=== PATIENT | male | born 1955 | race Two or more races ===

== ENCOUNTER 2018-02-14 15:25 | Emergency (ER) | payer MEDICAID ==
[~2018-02-14] VITALS: Ht 167.6 cm; Wt 70.3 kg
[2018-02-14 16:06] VITALS: BP 122/81
[2018-02-14] MEDS ORDERED: KETOROLAC TROMETH 30 MG/ML 1ML VIAL IM ONE (16:45)
== END 2018-02-14 18:11 | disposition home or self-care (01) ==
LOC: ER 15:33
DX: S60.221A Contusion of right hand, initial encounter (principal); F17.210 Nicotine dependence, cigarettes, uncomplicated; W22.8XXA Striking against or struck by other objects, initial encounter; Y93.89 Activity, other specified; Y99.8 Other external cause status; Y92.89 Other specified places as the place of occurrence of the external cause
CPT/HCPCS: 73130

== ENCOUNTER 2021-02-17 13:21 | Emergency (ER) | payer MEDICAID ==
[~2021-02-17] VITALS: Ht 167.6 cm; Wt 72.6 kg
[2021-02-17] MEDS ORDERED: ACETAMINOPHEN/CODEINE#3 (300/30mg) TAB PO ONE (15:15)
[2021-02-17] MEDS ORDERED: ONDANSETRON ODT 4 MG TAB PO ONE (15:15)
[2021-02-17 15:25] VITALS: BP 126/73
== END 2021-02-17 15:39 | disposition home or self-care (01) ==
LOC: ER 13:23
DX: H61.22 Impacted cerumen, left ear (principal)
CPT/HCPCS: 99283; Q0162

== ENCOUNTER 2022-12-15 17:21 | Emergency (ER) | payer MEDICAID ==
[~2022-12-15] VITALS: Ht 167.6 cm; Wt 87.0 kg
[2022-12-15 17:25] VITALS: BP 137/77; PULSE 96; RESP 20; O2SAT 93
[2022-12-15 21:07] LABS: Basophils # (auto) 0.1 10 ^3/uL (0-0.2); Basophils % (auto) 0.9 % (0.0-2.0); Eosinophils # (auto) 0.1 10 ^3/uL (0-0.8); Eosinophils % (auto) 1.6 % (0.0-7.0); Hematocrit 31.5 % (41.0-53.0); Hemoglobin 10.4 g/dL (13.5-17.5); Lymphocytes # (auto) 1.1 10 ^3/uL (0.4-5.4); Lymphocytes % (auto) 13.2 % (10.0-50.0); Mean Corpuscular Hemoglobin 31.7 pg (28.0-32.0); Mean Corpuscular Hgb Conc. 33.1 g/dL (32.0-36.0); Mean Corpuscular Volume 95.7 fL (80.0-100.0); Monocytes % (auto) 11.1 % (0.0-12.0); Neutrophils # (auto) 6.3 10 ^3/uL (1.6-8.6); Neutrophils % (auto) 73.2 % (37.0-80.0); Nucleated Red Blood Cells % 0.1 %; Red Blood Cells 3.29 10^6/uL (4.5-5.90); Red Cell Distribution Width 18.3 % (11.8-14.3); White Blood Cell 8.6 10^3/uL (4.4-10.8)
[2022-12-15 21:20] LABS: Albumin 2.2 g/dL (3.4-5.0); Calcium 7.5 mg/dL (8.5-10.1); Magnesium 2.5 mg/dL (1.6-2.6); Potassium 4.2 mmol/L (3.5-5.1)
[2022-12-15 21:24] LABS: BUN/Creatinine Ratio 5.7 (10.0-20.0); Total Protein 7.4 g/dL (6.4-8.2)
== END 2022-12-15 20:44 | disposition left against medical advice (07) ==
LOC: ER 17:21 → EDBD 17:21 → ER 20:44
DX: R07.89 Other chest pain (principal); R60.0 Localized edema; R06.02 Shortness of breath; Z53.21 Procedure and treatment not carried out due to patient leaving prior to being seen by health care provider
CPT/HCPCS: 36415; 71045; 80053; 83735; 83880; 84484; 85025; 93005

== ENCOUNTER 2023-03-01 13:40 | Inpatient (IN) | payer MEDICAID ==
[~2023-03-01] VITALS: Ht 198.1 cm; Wt 84.2 kg
[2023-03-01] VITALS (14 sets, daily range): BP systolic 69–168; BP diastolic 31–76; PULSE 115–150; RESP 16–24; TEMP 96.3–98.4; O2SAT 92–100
[2023-03-01] MEDS ORDERED: VANCOMYCIN 1GM/250ML 250 ML IV ONE (14:15)
[2023-03-01] MEDS ORDERED: ALBUMIN 25% 100 ML IV ONE (14:15)
[2023-03-01] MEDS ORDERED: PIPERACILLIN-TAZO 4.5GM 100 ML IV ONE (14:15)
[2023-03-01 14:38] LABS: Hematocrit 29.6 % (41.0-53.0); Hemoglobin 9.4 g/dL (13.5-17.5); Mean Corpuscular Hemoglobin 33.3 pg (28.0-32.0); Mean Corpuscular Hgb Conc. 31.9 g/dL (32.0-36.0); Mean Corpuscular Volume 104.2 fL (80.0-100.0); Red Blood Cells 2.84 10^6/uL (4.5-5.90); Red Cell Distribution Width 18.2 % (11.8-14.3); White Blood Cell 20.7 10^3/uL (4.4-10.8)
[2023-03-01 14:40] LABS: Basophils % (manual) 0 (0.0-2.0); Blast Cells 0; Eosinophils % (manual) 0 (0-7); Metamyelocytes % 0; Myelocytes % 0; Promyelocytes % 0; Reactive Lymphocytes 0
[2023-03-01] MEDS ORDERED: SODIUM CHLORIDE 0.9% 1,000 ML IV ONE ×2 (14:45→16:15)
[2023-03-01 15:05] LABS: INR 1.94 (0.9-1.15); Prothrombin Time 19.5 sec (9.3-11.8)
[2023-03-01 15:19] LABS: Alanine Aminotransferase 25 U/L (7-40); Albumin 2.2 g/dL (3.2-4.8); Alkaline Phosphatase 211 U/L (46-116); Anion Gap 13 (5-15); Aspartate Aminotransferase 60 U/L (13-40); Bilirubin, Total 6.5 mg/dL (0.2-1.0); Blood Urea Nitrogen 29 mg/dL (9-23); Calcium 8.5 mg/dL (8.5-10.1); Carbon Dioxide 18 mmol/L (20-30); Chloride 104 mmol/L (98-107); Glucose 170 mg/dL (74-106); Potassium 5.5 mmol/L (3.5-5.1); Sodium 135 mmol/L (136-145); Total Protein 5.1 g/dL (5.7-8.2)
[2023-03-01 15:39] LABS: Lactic Acid w/Reflex 9.4 mmol/L (0.4-2.0)
[2023-03-01] MEDS ORDERED: VANCOMYCIN PER PHARMACY 0 MG IV SCH (16:15)
[2023-03-01] MEDS ORDERED: MORPHINE SULFATE INJ 2 MG/ml SYRG IV PRN (16:15)
[2023-03-01] MEDS ORDERED: SODIUM ZIRCONIUM CYCL 10 GM PAK PO ONE ×3 (16:15→23:15)
[2023-03-01] MEDS ORDERED: ACETAMINOPHEN 325 MG TAB PO PRN (16:15)
[2023-03-01] MEDS ORDERED: NITROGLYCERIN 0.4 MG SL TAB SL PRN (16:15)
[2023-03-01] MEDS ORDERED: ONDANSETRON HCL 4 MG/2 ML VIAL IV PRN (16:15)
[2023-03-01 16:20] LABS: Anisocytosis Slight; Band Neutrophils % (manual) 4; Lymphocytes % (manual) 6 (10.0-50.0); Monocytes % (manual) 6 (0-12); Platelet Estimate Adequate
[2023-03-01] MEDS ORDERED: POTA1TAB4 (16:23)
[2023-03-01] MEDS ORDERED: DICL1GEL73 TOP (16:23)
[2023-03-01] MEDS ORDERED: [UNRECOGNIZED DRUG - OTHER] (16:23)
[2023-03-01] MEDS ORDERED: SPIR25TA8 PO (16:23)
[2023-03-01] MEDS: SODIUM CHLORIDE 0.9% 1,000 ML IV SCH (16:23)
[2023-03-01] MEDS ORDERED: ALBU108A5 INH (16:23)
[2023-03-01] MEDS ORDERED: FUR20T PO (16:23)
[2023-03-01] MEDS: ALBUMIN 25% 100 ML IV SCH (16:34)
[2023-03-01] MEDS ORDERED: ASPirin 300 MG RECTAL SUPP PR ONE (18:15)
[2023-03-01] MEDS ORDERED: NOREPINEPHRINE 8 MG/250ML KIT 250 ML IV ONE (18:53)
[2023-03-01] MEDS: NOREPINEPHRINE 8 MG/250ML KIT 250 ML IV SCH ×2 (18:56→23:31)
[2023-03-01] MEDS ORDERED: SUCCINYLCHOLINE CHLORIDE 20 MG/ML 10ML VIAL IV ONE ×2 (18:59→19:00)
[2023-03-01] MEDS ORDERED: ETOMIDATE (2MG/ML) 20ML VIAL IV ONE ×2 (18:59→19:00)
[2023-03-01] MEDS ORDERED: MIDAZOLAM DRIP 50 mg/50mL 50 ML IV ONE (19:07)
[2023-03-01] MEDS: MIDAZOLAM DRIP 50 mg/50mL 50 ML IV SCH ×2 (19:10→23:30)
[2023-03-01] MEDS ORDERED: PANTOPRAZOLE 80 MG in SODIUM CHL 0.9% 100 ML IV ONE (19:15)
[2023-03-01] MEDS ORDERED: OCTREOTIDE ACETATE 100 MCG in SODIUM CHL 0.9% 50 ML IV ONE (19:15)
[2023-03-01] MEDS ORDERED: PANTOPRAZOLE 40 MG/10 ML VIAL INJ IV ONE (19:34)
[2023-03-01] MEDS: PANTOPRAZOLE 40mg/50ML NS AE 50 ML IV SCH (19:49)
[2023-03-01] MEDS: OCTREOTIDE ACETATE 500 MCG in SODIUM CHL 0.9% 99 ML IV SCH (19:51)
[2023-03-01] MEDS: PHENYLEPHRINE IV 250 ML IV SCH (20:13)
[2023-03-01] MEDS: VASOPRESSIN 40 UNITS in D5W 5% 198 ML IV SCH (20:32)
[2023-03-01 20:54] LABS: Urine Bacteria FEW /hpf (None Seen); Urine Blood 1+ /uL (Negative); Urine Clarity HAZY (Clear); Urine Color Yellow (Yellow); Urine Protein, UAD 1+ (Negative); Urine WBC 64 /hpf (0 - 3)
[2023-03-01] MEDS ORDERED: fentaNYL Drip 2500mCg/250mlNS 250 ML IV ONE (21:14)
[2023-03-01 21:15] LABS: Basophils # (auto) 0.1 10 ^3/uL (0-0.2); Basophils % (auto) 0.5 % (0.0-2.0); Eosinophils # (auto) 0.1 10 ^3/uL (0-0.8); Eosinophils % (auto) 0.4 % (0.0-7.0); Hematocrit 26.8 % (41.0-53.0); Hemoglobin 8.6 g/dL (13.5-17.5); Lymphocytes # (auto) 2.2 10 ^3/uL (0.4-5.4); Lymphocytes % (auto) 13.4 % (10.0-50.0); Mean Corpuscular Hemoglobin 31.4 pg (28.0-32.0); Mean Corpuscular Volume 98.2 fL (80.0-100.0); Monocytes # (auto) 2.4 10 ^3/uL (0-1.3); Monocytes % (auto) 14.2 % (0.0-12.0); Neutrophils # (auto) 11.9 10 ^3/uL (1.6-8.6); Neutrophils % (auto) 71.5 % (37.0-80.0); Nucleated Red Blood Cells % 0.1 %; Red Blood Cells 2.73 10^6/uL (4.5-5.90); Red Cell Distribution Width 15.8 % (11.8-14.3); White Blood Cell 16.6 10^3/uL (4.4-10.8)
[2023-03-01] MEDS: fentaNYL Drip 2500mCg/250mlNS 250 ML IV SCH (21:15)
[2023-03-01 21:45] LABS: Alanine Aminotransferase 55 U/L (7-40); Alkaline Phosphatase 116 U/L (46-116); Anion Gap 15 (5-15); Aspartate Aminotransferase 268 U/L (13-40); BUN/Creatinine Ratio 20.7 (10.0-20.0); Blood Urea Nitrogen 23 mg/dL (9-23); Calcium 7.6 mg/dL (8.7-10.4); Carbon Dioxide 15 mmol/L (20-30); Chloride 107 mmol/L (98-107); Glucose 151 mg/dL (74-106); Sodium 137 mmol/L (136-145)
[2023-03-01 21:46] LABS: Bilirubin, Total 4.7 mg/dL (0.2-1.0); Total Protein 3.7 g/dL (5.7-8.2)
[2023-03-01 21:59] LABS: Potassium 5.8 mmol/L (3.5-5.1)
[2023-03-01] MEDS ORDERED: InsuLIN REG 1unit/0.01ml Soln (100units/ml) IV ONE (23:15)
[2023-03-01] MEDS ORDERED: DEXTROSE (50%) 50ML SYRG IV ONE (23:15)
[2023-03-01] MEDS ORDERED: SODIUM BICARBONATE 8.4 % INJ 50ML VIAL IV ONE (23:15)
[2023-03-01] MEDS ORDERED: FUROSEMIDE 20 MG/2 ML VIAL IV ONE (23:15)
[2023-03-01] MEDS ORDERED: CALCIUM GLUC 1,000mg/50ml-NS 50 ML IV ONE (23:15)
[2023-03-01] MEDS: FOLIC ACID 1 MG, MULTIPLE VITAMIN 10 ML, MAGNESIUM SULF SDV 50% 8 MEQ, THIAMINE INJ 100... INJ SCH ×5 (23:28)
[2023-03-02] VITALS (120 sets, daily range): BP systolic 78–144; BP diastolic 19–71; PULSE 74–155; RESP 12–35; TEMP 86–99.1; O2SAT 94–100
[2023-03-02] MEDS: PANTOPRAZOLE 40mg/50ML NS AE 50 ML IV SCH ×6 (00:23→23:25)
[2023-03-02 00:54] LABS: Basophils # (auto) 0.1 10 ^3/uL (0-0.2); Basophils % (auto) 0.3 % (0.0-2.0); Eosinophils # (auto) 0 10 ^3/uL (0-0.8); Eosinophils % (auto) 0.2 % (0.0-7.0); Hematocrit 31.6 % (41.0-53.0); Lymphocytes # (auto) 1.9 10 ^3/uL (0.4-5.4); Lymphocytes % (auto) 10.9 % (10.0-50.0); Mean Corpuscular Hemoglobin 31.8 pg (28.0-32.0); Mean Corpuscular Hgb Conc. 31.6 g/dL (32.0-36.0); Mean Corpuscular Volume 100.7 fL (80.0-100.0); Monocytes # (auto) 0.4 10 ^3/uL (0-1.3); Monocytes % (auto) 2.4 % (0.0-12.0); Neutrophils # (auto) 15.3 10 ^3/uL (1.6-8.6); Neutrophils % (auto) 86.2 % (37.0-80.0); Nucleated Red Blood Cells % 0.1 %; Red Blood Cells 3.13 10^6/uL (4.5-5.90); Red Cell Distribution Width 16.6 % (11.8-14.3); White Blood Cell 17.7 10^3/uL (4.4-10.8)
[2023-03-02 01:12] LABS: Lactic Acid w/Reflex 9.4 mmol/L (0.4-2.0)
[2023-03-02] MEDS: ALBUMIN 25% 100 ML IV SCH ×2 (01:58→08:27)
[2023-03-02] MEDS: VASOPRESSIN 40 UNITS in D5W 5% 198 ML IV SCH ×8 (01:59→22:55)
[2023-03-02] MEDS: LACTULOSE 20Gm/30ML SOLN PO SCH ×4 (02:01→16:52)
[2023-03-02] MEDS: MIDAZOLAM DRIP 50 mg/50mL 50 ML IV SCH ×4 (02:18→22:15)
[2023-03-02] MEDS: SODIUM CHLORIDE 0.9% 1,000 ML IV SCH ×3 (03:32→21:22)
[2023-03-02 04:05] LABS: Hematocrit 25.9 % (41.0-53.0); Hemoglobin 8.4 g/dL (13.5-17.5); Mean Corpuscular Hemoglobin 31.8 pg (28.0-32.0); Mean Corpuscular Hgb Conc. 32.5 g/dL (32.0-36.0); Mean Corpuscular Volume 97.8 fL (80.0-100.0); Red Blood Cells 2.65 10^6/uL (4.5-5.90); Red Cell Distribution Width 15.9 % (11.8-14.3); White Blood Cell 25.8 10^3/uL (4.4-10.8)
[2023-03-02] MEDS: PHENYLEPHRINE IV 250 ML IV SCH ×3 (04:05→20:34)
[2023-03-02 04:07] LABS: Basophils % (manual) 0 (0.0-2.0); Blast Cells 0; Eosinophils % (manual) 0 (0-7); Metamyelocytes % 0; Myelocytes % 0; Promyelocytes % 0; Reactive Lymphocytes 0
[2023-03-02 04:19] LABS: Alanine Aminotransferase 126 U/L (7-40); Alkaline Phosphatase 117 U/L (46-116); Calcium 8.2 mg/dL (8.7-10.4); Carbon Dioxide 23 mmol/L (20-30); Chloride 109 mmol/L (98-107); Glucose 102 mg/dL (74-106); Potassium 4.9 mmol/L (3.5-5.1)
[2023-03-02 04:20] LABS: Albumin 2.6 g/dL (3.2-4.8); Anion Gap 7 (5-15); Aspartate Aminotransferase 584 U/L (13-40); Blood Urea Nitrogen 19 mg/dL (9-23); Lactic Acid w/Reflex 3.8 mmol/L (0.4-2.0); Sodium 139 mmol/L (136-145); Total Protein 4.4 g/dL (5.7-8.2)
[2023-03-02 04:21] LABS: Bilirubin, Total 8.4 mg/dL (0.2-1.0)
[2023-03-02] MEDS: OCTREOTIDE ACETATE 500 MCG in SODIUM CHL 0.9% 99 ML IV SCH ×2 (05:26→16:32)
[2023-03-02] MEDS: NOREPINEPHRINE 8 MG/250ML KIT 250 ML IV SCH ×2 (05:50→23:45)
[2023-03-02 05:59] LABS: Band Neutrophils % (manual) 15; Lymphocytes % (manual) 13 (10.0-50.0); Monocytes % (manual) 9 (0-12)
[2023-03-02 06:00] LABS: Anisocytosis Slight; Platelet Estimate Adequate
[2023-03-02] MEDS ORDERED: VANCOMYCIN 1GM/250ML 250 ML IV SCH (06:00)
[2023-03-02] MEDS: CEFEPIME 1GM/ 50ML 50 ML IV SCH ×2 (06:40→06:44)
[2023-03-02 07:33] LABS: Base Excess 0.8 mmol/L (-2.0-2.0)
[2023-03-02] MEDS ORDERED: ENOXAPARIN SOD 40 MG/0.4 ML SYRINGE SC SCH (10:00)
[2023-03-02] MEDS: fentaNYL Drip 2500mCg/250mlNS 250 ML IV SCH ×2 (11:48→22:13)
[2023-03-02 12:16] LABS: Basophils # (auto) 0.1 10 ^3/uL (0-0.2); Basophils % (auto) 0.9 % (0.0-2.0); Eosinophils # (auto) 0.2 10 ^3/uL (0-0.8); Eosinophils % (auto) 1.6 % (0.0-7.0); Hematocrit 18.6 % (41.0-53.0); Lymphocytes % (auto) 20.9 % (10.0-50.0); Mean Corpuscular Hemoglobin 32.1 pg (28.0-32.0); Mean Corpuscular Hgb Conc. 33.9 g/dL (32.0-36.0); Mean Corpuscular Volume 94.6 fL (80.0-100.0); Monocytes % (auto) 6.9 % (0.0-12.0); Neutrophils # (auto) 10.1 10 ^3/uL (1.6-8.6); Neutrophils % (auto) 69.7 % (37.0-80.0); Nucleated Red Blood Cells % 0.1 %; Red Blood Cells 1.97 10^6/uL (4.5-5.90); Red Cell Distribution Width 15.2 % (11.8-14.3); White Blood Cell 14.5 10^3/uL (4.4-10.8)
[2023-03-02 12:21] LABS: Hemoglobin 6.3 g/dL (13.5-17.5)
[2023-03-02] MEDS ORDERED: LACTULOSE 10g/15ml SOLN 473ML PR ONE (16:15)
[2023-03-02 18:35] LABS: INR 2.16 (0.9-1.15); Prothrombin Time 21.6 sec (9.3-11.8)
[2023-03-02] MEDS: FOLIC ACID 1 MG, MULTIPLE VITAMIN 10 ML, MAGNESIUM SULF SDV 50% 8 MEQ, THIAMINE INJ 100... INJ SCH ×5 (19:38)
[2023-03-02 20:03] LABS: Basophils # (auto) 0.1 10 ^3/uL (0-0.2); Basophils % (auto) 0.8 % (0.0-2.0); Eosinophils # (auto) 0.3 10 ^3/uL (0-0.8); Eosinophils % (auto) 2.2 % (0.0-7.0); Hematocrit 26.6 % (41.0-53.0); Hemoglobin 8.8 g/dL (13.5-17.5); Lymphocytes # (auto) 2.4 10 ^3/uL (0.4-5.4); Lymphocytes % (auto) 20.3 % (10.0-50.0); Mean Corpuscular Hemoglobin 29.6 pg (28.0-32.0); Mean Corpuscular Hgb Conc. 33.1 g/dL (32.0-36.0); Mean Corpuscular Volume 89.4 fL (80.0-100.0); Monocytes # (auto) 0.7 10 ^3/uL (0-1.3); Monocytes % (auto) 6.2 % (0.0-12.0); Neutrophils # (auto) 8.3 10 ^3/uL (1.6-8.6); Neutrophils % (auto) 70.5 % (37.0-80.0); Nucleated Red Blood Cells % 0.1 %; Red Blood Cells 2.98 10^6/uL (4.5-5.90); Red Cell Distribution Width 19.2 % (11.8-14.3); White Blood Cell 11.7 10^3/uL (4.4-10.8)
[2023-03-02 22:00] LABS: Hematocrit 26.3 % (41.0-53.0); Hemoglobin 8.8 g/dL (13.5-17.5)
[2023-03-02 22:05] LABS: Basophils # (auto) 0.1 10 ^3/uL (0-0.2); Basophils % (auto) 0.9 % (0.0-2.0); Eosinophils # (auto) 0.3 10 ^3/uL (0-0.8); Eosinophils % (auto) 2.6 % (0.0-7.0); Hematocrit 26.1 % (41.0-53.0); Hemoglobin 8.8 g/dL (13.5-17.5); Lymphocytes # (auto) 2.5 10 ^3/uL (0.4-5.4); Lymphocytes % (auto) 21.2 % (10.0-50.0); Mean Corpuscular Hemoglobin 29.9 pg (28.0-32.0); Mean Corpuscular Hgb Conc. 33.8 g/dL (32.0-36.0); Mean Corpuscular Volume 88.4 fL (80.0-100.0); Monocytes # (auto) 0.8 10 ^3/uL (0-1.3); Monocytes % (auto) 6.9 % (0.0-12.0); Neutrophils % (auto) 68.4 % (37.0-80.0); Nucleated Red Blood Cells % 0.2 %; Red Blood Cells 2.95 10^6/uL (4.5-5.90); Red Cell Distribution Width 19.5 % (11.8-14.3); White Blood Cell 11.7 10^3/uL (4.4-10.8)
[2023-03-02] MEDS: LACTULOSE 10g/15ml SOLN 473ML PR SCH (22:06)
[2023-03-02 22:23] LABS: Alanine Aminotransferase 111 U/L (7-40); Albumin 2.6 g/dL (3.2-4.8); Alkaline Phosphatase 104 U/L (46-116); Anion Gap 5 (5-15); Aspartate Aminotransferase 302 U/L (13-40); BUN/Creatinine Ratio 26.8 (10.0-20.0); Bilirubin, Total 7.9 mg/dL (0.2-1.0); Blood Urea Nitrogen 19 mg/dL (9-23); Calcium 7.9 mg/dL (8.7-10.4); Carbon Dioxide 26 mmol/L (20-30); Chloride 107 mmol/L (98-107); Glucose 135 mg/dL (74-106); INR 2.15 (0.9-1.15); Magnesium 1.9 mg/dL (1.6-2.6); Partial Thromboplastin Time 43.2 SEC (24.5-34.5); Potassium 3.9 mmol/L (3.5-5.1); Prothrombin Time 21.5 sec (9.3-11.8); Sodium 138 mmol/L (136-145); Total Protein 4.3 g/dL (5.7-8.2)
[2023-03-03] VITALS (73 sets, daily range): BP systolic 87–112; BP diastolic 44–62; PULSE 80–113; RESP 13–21; TEMP 97.6–98.3; O2SAT 99–100
[2023-03-03] MEDS: VASOPRESSIN 40 UNITS in D5W 5% 198 ML IV SCH ×6 (02:15→22:15)
[2023-03-03] MEDS: LACTULOSE 10g/15ml SOLN 473ML PR SCH ×4 (04:30→22:29)
[2023-03-03] MEDS: PHENYLEPHRINE IV 250 ML IV SCH ×3 (05:05→19:45)
[2023-03-03] MEDS: PANTOPRAZOLE 40mg/50ML NS AE 50 ML IV SCH ×5 (06:15→22:30)
[2023-03-03] MEDS: cefTRIAXone 1GM/50ML D5W 50 ML IV SCH (09:00)
[2023-03-03] MEDS: OCTREOTIDE ACETATE 500 MCG in SODIUM CHL 0.9% 99 ML IV SCH ×3 (11:15→21:15)
[2023-03-03 11:28] LABS: Base Excess 1.2 mmol/L (-2.0-2.0)
[2023-03-03] MEDS: LACTULOSE 20Gm/30ML SOLN PO SCH ×3 (12:00→18:12)
[2023-03-03 12:42] LABS: Alanine Aminotransferase 102 U/L (7-40); Albumin 2.7 g/dL (3.2-4.8); Alkaline Phosphatase 102 U/L (46-116); Anion Gap 7 (5-15); Aspartate Aminotransferase 260 U/L (13-40); BUN/Creatinine Ratio 30.3 (10.0-20.0); Bilirubin, Total 7.8 mg/dL (0.2-1.0); Blood Urea Nitrogen 20 mg/dL (9-23); Carbon Dioxide 25 mmol/L (20-30); Chloride 111 mmol/L (98-107); Glucose 127 mg/dL (74-106); Potassium 3.6 mmol/L (3.5-5.1); Sodium 143 mmol/L (136-145); Total Protein 4.4 g/dL (5.7-8.2)
[2023-03-03 12:48] LABS: Alanine Aminotransferase 99 U/L (7-40); Albumin 2.3 g/dL (3.2-4.8); Alkaline Phosphatase 96 U/L (46-116); Anion Gap 5 (5-15); Aspartate Aminotransferase 214 U/L (13-40); BUN/Creatinine Ratio 24.3 (10.0-20.0); Blood Urea Nitrogen 17 mg/dL (9-23); Calcium 7.9 mg/dL (8.5-10.1); Carbon Dioxide 26 mmol/L (20-30); Chloride 114 mmol/L (98-107); Glucose 112 mg/dL (74-106); Potassium 3.3 mmol/L (3.5-5.1); Sodium 145 mmol/L (136-145)
[2023-03-03] MEDS: FOLIC ACID 1 MG, MULTIPLE VITAMIN 10 ML, MAGNESIUM SULF SDV 50% 8 MEQ, THIAMINE INJ 100... INJ SCH ×5 (13:39)
[2023-03-03] MEDS: MIDAZOLAM DRIP 50 mg/50mL 50 ML IV SCH ×3 (14:05→21:02)
[2023-03-03] MEDS: rifAXIMin 550 MG TAB PO SCH ×2 (14:05→22:34)
[2023-03-03 14:40] LABS: Basophils # (auto) 0.1 10 ^3/uL (0-0.2); Eosinophils # (auto) 0.3 10 ^3/uL (0-0.8); Eosinophils % (auto) 3.5 % (0.0-7.0); Hemoglobin 8.3 g/dL (13.5-17.5); Lymphocytes # (auto) 1.1 10 ^3/uL (0.4-5.4); Lymphocytes % (auto) 11.6 % (10.0-50.0); Mean Corpuscular Hemoglobin 30.1 pg (28.0-32.0); Mean Corpuscular Hgb Conc. 33.4 g/dL (32.0-36.0); Mean Corpuscular Volume 90.2 fL (80.0-100.0); Monocytes # (auto) 0.6 10 ^3/uL (0-1.3); Monocytes % (auto) 6.5 % (0.0-12.0); Neutrophils # (auto) 7.5 10 ^3/uL (1.6-8.6); Neutrophils % (auto) 77.4 % (37.0-80.0); Nucleated Red Blood Cells % 0.5 %; Red Blood Cells 2.77 10^6/uL (4.5-5.90); Red Cell Distribution Width 19.8 % (11.8-14.3); White Blood Cell 9.7 10^3/uL (4.4-10.8)
[2023-03-03 14:49] LABS: INR 1.79 (0.9-1.15); Partial Thromboplastin Time 42.4 SEC (24.5-34.5); Prothrombin Time 18.1 sec (9.3-11.8)
[2023-03-03] MEDS: POTASSIUM CHL 20MEQ/100ML 100 ML IV SCH ×2 (14:51→16:59)
[2023-03-03 15:09] LABS: Hepatitis B Surface Antigen Negative (Negative)
[2023-03-03 15:13] LABS: Hepatitis A Total Antibody Positive (Negative); Hepatitis B Core Total AB Positive (Negative); Hepatitis B Surface Antibody Positive (Negative); Hepatitis C Antibody Reactive (Negative)
[2023-03-03] MEDS: NOREPINEPHRINE 8 MG/250ML KIT 250 ML IV SCH (16:06)
[2023-03-03] MEDS: fentaNYL Drip 2500mCg/250mlNS 250 ML IV SCH (18:15)
[2023-03-03] MEDS ORDERED: PHYTONADIONE (VIT K)10 MG/ML 1ML VIAL SUBCUT ONE (19:30)
[2023-03-03 19:34] LABS: Hematocrit 25.2 % (41.0-53.0); Hemoglobin 8.5 g/dL (13.5-17.5)
[2023-03-03] MEDS ORDERED: rifAXIMin 550 MG TAB PO SCH (22:00)
[2023-03-04] VITALS (108 sets, daily range): BP systolic 87–126; BP diastolic 45–60; PULSE 72–104; RESP 13–19; TEMP 93.2–99.1; O2SAT 98–100
[2023-03-04] MEDS: LACTULOSE 20Gm/30ML SOLN PO SCH ×4 (00:12→20:18)
[2023-03-04] MEDS: VASOPRESSIN 40 UNITS in D5W 5% 198 ML IV SCH ×7 (00:24→20:52)
[2023-03-04] MEDS: MIDAZOLAM DRIP 50 mg/50mL 50 ML IV SCH ×4 (00:55→10:04)
[2023-03-04] MEDS: OCTREOTIDE ACETATE 500 MCG in SODIUM CHL 0.9% 99 ML IV SCH ×3 (01:39→21:42)
[2023-03-04] MEDS: PHENYLEPHRINE IV 250 ML IV SCH ×3 (02:19→22:45)
[2023-03-04] MEDS: LACTULOSE 10g/15ml SOLN 473ML PR SCH ×3 (04:12→16:50)
[2023-03-04] MEDS: PANTOPRAZOLE 40mg/50ML NS AE 50 ML IV SCH ×4 (04:55→20:18)
[2023-03-04 05:29] LABS: Alanine Aminotransferase 95 U/L (7-40); Alkaline Phosphatase 124 U/L (46-116); Anion Gap 5 (5-15); Blood Urea Nitrogen 18 mg/dL (9-23); Carbon Dioxide 24 mmol/L (20-30); Chloride 117 mmol/L (98-107); Glucose 107 mg/dL (74-106); Magnesium 2.1 mg/dL (1.6-2.6); Potassium 3.7 mmol/L (3.5-5.1); Sodium 146 mmol/L (136-145)
[2023-03-04 05:30] LABS: Albumin 2.5 g/dL (3.2-4.8); Aspartate Aminotransferase 166 U/L (13-40); Bilirubin, Total 4.8 mg/dL (0.2-1.0); Total Protein 4.5 g/dL (5.7-8.2)
[2023-03-04 05:31] LABS: Basophils # (auto) 0.1 10 ^3/uL (0-0.2); Basophils % (auto) 0.8 % (0.0-2.0); Eosinophils # (auto) 0.3 10 ^3/uL (0-0.8); Eosinophils % (auto) 3.1 % (0.0-7.0); Hematocrit 26.3 % (41.0-53.0); Hemoglobin 9.1 g/dL (13.5-17.5); Lymphocytes # (auto) 1.3 10 ^3/uL (0.4-5.4); Lymphocytes % (auto) 12.7 % (10.0-50.0); Mean Corpuscular Hemoglobin 30.6 pg (28.0-32.0); Mean Corpuscular Hgb Conc. 34.4 g/dL (32.0-36.0); Mean Corpuscular Volume 88.9 fL (80.0-100.0); Monocytes # (auto) 0.6 10 ^3/uL (0-1.3); Monocytes % (auto) 5.9 % (0.0-12.0); Neutrophils % (auto) 77.5 % (37.0-80.0); Red Blood Cells 2.96 10^6/uL (4.5-5.90); Red Cell Distribution Width 19.6 % (11.8-14.3); White Blood Cell 10.3 10^3/uL (4.4-10.8)
[2023-03-04] MEDS: fentaNYL Drip 2500mCg/250mlNS 250 ML IV SCH (06:08)
[2023-03-04 08:48] LABS: Base Excess -3.8 mmol/L (-2.0-2.0)
[2023-03-04] MEDS: cefTRIAXone 1GM/50ML D5W 50 ML IV SCH (10:03)
[2023-03-04] MEDS: rifAXIMin 550 MG TAB PO SCH ×2 (10:04→21:42)
[2023-03-04] MEDS ORDERED: TPN PER PHARMACY 0 ML IV SCH (10:30)
[2023-03-04 11:40] LABS: INR 1.83 (0.9-1.15); Partial Thromboplastin Time 42.7 SEC (24.5-34.5); Prothrombin Time 18.5 sec (9.3-11.8)
[2023-03-04] MEDS: FREE WATER GT SCH ×3 (13:55→21:42)
[2023-03-04] MEDS ORDERED: FREE WATER GT SCH (14:00)
[2023-03-04] MEDS: NOREPINEPHRINE 8 MG/250ML KIT 250 ML IV SCH (19:00)
[2023-03-04] MEDS ORDERED: TPN PER PHARMACY IV NR ×6 (20:00)
[2023-03-04] MEDS ORDERED: DEXTROSE (50%) 50ML SYRG IV SCH (20:00)
[2023-03-05] VITALS (111 sets, daily range): BP systolic 98–131; BP diastolic 45–58; PULSE 70–95; RESP 12–24; TEMP 97–99.5; O2SAT 95–100
[2023-03-05] MEDS: ACCU-CHEK COMFORT CURVE STRIP VI SCH ×5 (00:34→23:52)
[2023-03-05] MEDS: LACTULOSE 20Gm/30ML SOLN PO SCH ×5 (00:34→23:52)
[2023-03-05] MEDS: InsuLIN REG 1unit/0.01ml Soln (100units/ml) SC SCH ×5 (00:39→23:53)
[2023-03-05] MEDS: PANTOPRAZOLE 40mg/50ML NS AE 50 ML IV SCH ×5 (00:49→22:41)
[2023-03-05] MEDS: VASOPRESSIN 40 UNITS in D5W 5% 198 ML IV SCH ×8 (00:55→23:54)
[2023-03-05] MEDS: FREE WATER GT SCH ×6 (02:00→22:18)
[2023-03-05 04:10] LABS: Basophils # (auto) 0.1 10 ^3/uL (0-0.2); Basophils % (auto) 0.9 % (0.0-2.0); Eosinophils # (auto) 0.4 10 ^3/uL (0-0.8); Eosinophils % (auto) 2.5 % (0.0-7.0); Hematocrit 26.7 % (41.0-53.0); Hemoglobin 8.8 g/dL (13.5-17.5); Lymphocytes # (auto) 0.8 10 ^3/uL (0.4-5.4); Lymphocytes % (auto) 5.6 % (10.0-50.0); Mean Corpuscular Hemoglobin 29.9 pg (28.0-32.0); Mean Corpuscular Hgb Conc. 32.8 g/dL (32.0-36.0); Monocytes # (auto) 1.2 10 ^3/uL (0-1.3); Monocytes % (auto) 8.4 % (0.0-12.0); Neutrophils # (auto) 12.2 10 ^3/uL (1.6-8.6); Neutrophils % (auto) 82.6 % (37.0-80.0); Red Blood Cells 2.93 10^6/uL (4.5-5.90); White Blood Cell 14.7 10^3/uL (4.4-10.8)
[2023-03-05 04:18] LABS: INR 1.8 (0.9-1.15); Partial Thromboplastin Time 39.6 SEC (24.5-34.5); Prothrombin Time 18.2 sec (9.3-11.8)
[2023-03-05 04:21] LABS: Alanine Aminotransferase 72 U/L (7-40); Albumin 2.4 g/dL (3.2-4.8); Alkaline Phosphatase 142 U/L (46-116); Anion Gap 6 (5-15); Aspartate Aminotransferase 85 U/L (13-40); BUN/Creatinine Ratio 21.7 (10.0-20.0); Bilirubin, Total 3.4 mg/dL (0.2-1.0); Blood Urea Nitrogen 20 mg/dL (9-23); Carbon Dioxide 24 mmol/L (20-30); Chloride 118 mmol/L (98-107); Glucose 153 mg/dL (74-106); Phosphorus 3.2 mg/dL (2.4-5.1); Potassium 3.6 mmol/L (3.5-5.1); Sodium 148 mmol/L (136-145)
[2023-03-05 04:22] LABS: Total Protein 4.4 g/dL (5.7-8.2)
[2023-03-05] MEDS: OCTREOTIDE ACETATE 500 MCG in SODIUM CHL 0.9% 99 ML IV SCH ×3 (06:40→17:29)
[2023-03-05] MEDS: PHENYLEPHRINE IV 250 ML IV SCH ×3 (07:05→23:10)
[2023-03-05] MEDS: rifAXIMin 550 MG TAB PO SCH ×2 (10:34→22:18)
[2023-03-05] MEDS: cefTRIAXone 1GM/50ML D5W 50 ML IV SCH (10:57)
[2023-03-05] MEDS: NOREPINEPHRINE 8 MG/250ML KIT 250 ML IV SCH (19:00)
[2023-03-05] MEDS: MIDAZOLAM DRIP 50 mg/50mL 50 ML IV SCH (19:15)
[2023-03-05] MEDS: TPN PER PHARMACY IV NR ×11 (19:55)
[2023-03-05] MEDS: fentaNYL Drip 2500mCg/250mlNS 250 ML IV SCH (21:15)
[2023-03-06] VITALS (106 sets, daily range): BP systolic 82–123; BP diastolic 42–64; PULSE 72–99; RESP 13–33; TEMP 97.3–100; O2SAT 91–100
[2023-03-06] MEDS: FREE WATER GT SCH ×6 (02:12→21:47)
[2023-03-06] MEDS: OCTREOTIDE ACETATE 500 MCG in SODIUM CHL 0.9% 99 ML IV SCH ×2 (02:29→16:46)
[2023-03-06] MEDS: PANTOPRAZOLE 40mg/50ML NS AE 50 ML IV SCH ×4 (02:59→20:37)
[2023-03-06] MEDS: VASOPRESSIN 40 UNITS in D5W 5% 198 ML IV SCH ×7 (03:35→23:35)
[2023-03-06 04:09] LABS: Basophils # (auto) 0.1 10 ^3/uL (0-0.2); Basophils % (auto) 1.1 % (0.0-2.0); Eosinophils # (auto) 0.6 10 ^3/uL (0-0.8); Hemoglobin 8.7 g/dL (13.5-17.5); Lymphocytes # (auto) 1.7 10 ^3/uL (0.4-5.4); Lymphocytes % (auto) 12.3 % (10.0-50.0); Mean Corpuscular Hemoglobin 30.6 pg (28.0-32.0); Mean Corpuscular Hgb Conc. 33.4 g/dL (32.0-36.0); Mean Corpuscular Volume 91.7 fL (80.0-100.0); Monocytes # (auto) 1.9 10 ^3/uL (0-1.3); Monocytes % (auto) 13.5 % (0.0-12.0); Neutrophils # (auto) 9.5 10 ^3/uL (1.6-8.6); Neutrophils % (auto) 69.1 % (37.0-80.0); Red Blood Cells 2.84 10^6/uL (4.5-5.90); Red Cell Distribution Width 21.1 % (11.8-14.3); White Blood Cell 13.7 10^3/uL (4.4-10.8)
[2023-03-06 04:24] LABS: INR 1.76 (0.9-1.15); Partial Thromboplastin Time 40.2 SEC (24.5-34.5); Prothrombin Time 17.8 sec (9.3-11.8)
[2023-03-06 04:33] LABS: Alanine Aminotransferase 51 U/L (7-40); Albumin 2.3 g/dL (3.2-4.8); Alkaline Phosphatase 143 U/L (46-116); Anion Gap 5 (5-15); Aspartate Aminotransferase 50 U/L (13-40); Bilirubin, Total 3.3 mg/dL (0.2-1.0); Blood Urea Nitrogen 20 mg/dL (9-23); Calcium 7.9 mg/dL (8.7-10.4); Carbon Dioxide 25 mmol/L (20-30); Chloride 117 mmol/L (98-107); Glucose 113 mg/dL (74-106); Magnesium 1.8 mg/dL (1.6-2.6); Phosphorus 3.3 mg/dL (2.4-5.1); Potassium 3.7 mmol/L (3.5-5.1); Sodium 147 mmol/L (136-145); Total Protein 4.3 g/dL (5.7-8.2)
[2023-03-06] MEDS: LACTULOSE 20Gm/30ML SOLN PO SCH ×4 (05:41→23:48)
[2023-03-06] MEDS: ACCU-CHEK COMFORT CURVE STRIP VI SCH ×4 (05:41→23:48)
[2023-03-06] MEDS: InsuLIN REG 1unit/0.01ml Soln (100units/ml) SC SCH ×4 (05:43→23:52)
[2023-03-06] MEDS: NOREPINEPHRINE 8 MG/250ML KIT 250 ML IV SCH (06:39)
[2023-03-06] MEDS: PHENYLEPHRINE IV 250 ML IV SCH ×2 (08:05→16:25)
[2023-03-06] MEDS: cefTRIAXone 1GM/50ML D5W 50 ML IV SCH (09:00)
[2023-03-06 09:30] LABS: Triglycerides 47 mg/dL (< 150)
[2023-03-06] MEDS: rifAXIMin 550 MG TAB PO SCH ×2 (10:00→21:47)
[2023-03-06 10:11] LABS: Base Excess -0.2 mmol/L (-2.0-2.0)
[2023-03-06] MEDS: PROPOFOL 100 ML IV SCH ×2 (14:19→20:37)
[2023-03-06] MEDS: MIDAZOLAM DRIP 50 mg/50mL 50 ML IV SCH (19:15)
[2023-03-06] MEDS: TPN PER PHARMACY IV NR ×22 (19:42→19:59)
[2023-03-06] MEDS ORDERED: TPN PER PHARMACY IV NR ×10 (20:00)
[2023-03-06] MEDS: fentaNYL Drip 2500mCg/250mlNS 250 ML IV SCH (20:38)
[2023-03-07] VITALS (106 sets, daily range): BP systolic 80–130; BP diastolic 38–63; PULSE 64–81; RESP 10–26; TEMP 97–99.3; O2SAT 93–100
[2023-03-07] MEDS: PHENYLEPHRINE IV 250 ML IV SCH ×3 (00:03→17:24)
[2023-03-07] MEDS: PANTOPRAZOLE 40mg/50ML NS AE 50 ML IV SCH ×3 (01:59→09:47)
[2023-03-07] MEDS: FREE WATER GT SCH ×6 (02:00→22:19)
[2023-03-07] MEDS: OCTREOTIDE ACETATE 500 MCG in SODIUM CHL 0.9% 99 ML IV SCH (02:00)
[2023-03-07] MEDS: VASOPRESSIN 40 UNITS in D5W 5% 198 ML IV SCH ×7 (02:55→22:55)
[2023-03-07 04:34] LABS: Basophils # (auto) 0.1 10 ^3/uL (0-0.2); Basophils % (auto) 0.9 % (0.0-2.0); Eosinophils # (auto) 0.8 10 ^3/uL (0-0.8); Eosinophils % (auto) 5.7 % (0.0-7.0); Hematocrit 28.1 % (41.0-53.0); Hemoglobin 9.2 g/dL (13.5-17.5); Lymphocytes # (auto) 2.3 10 ^3/uL (0.4-5.4); Lymphocytes % (auto) 15.9 % (10.0-50.0); Mean Corpuscular Hemoglobin 30.9 pg (28.0-32.0); Mean Corpuscular Hgb Conc. 32.7 g/dL (32.0-36.0); Mean Corpuscular Volume 94.4 fL (80.0-100.0); Monocytes # (auto) 2.2 10 ^3/uL (0-1.3); Neutrophils % (auto) 62.5 % (37.0-80.0); Red Blood Cells 2.98 10^6/uL (4.5-5.90); White Blood Cell 14.4 10^3/uL (4.4-10.8)
[2023-03-07 04:45] LABS: Red Cell Distribution Width 22.3 % (11.8-14.3)
[2023-03-07 04:57] LABS: Alanine Aminotransferase 42 U/L (7-40); Alkaline Phosphatase 157 U/L (46-116); Anion Gap 4 (5-15); BUN/Creatinine Ratio 22.3 (10.0-20.0); Blood Urea Nitrogen 21 mg/dL (9-23); Calcium 7.9 mg/dL (8.7-10.4); Carbon Dioxide 25 mmol/L (20-30); Chloride 115 mmol/L (98-107); Glucose 120 mg/dL (74-106); Magnesium 1.8 mg/dL (1.6-2.6); Potassium 4.3 mmol/L (3.5-5.1); Sodium 144 mmol/L (136-145)
[2023-03-07] MEDS: PROPOFOL 100 ML IV SCH (04:57)
[2023-03-07] MEDS: NOREPINEPHRINE 8 MG/250ML KIT 250 ML IV SCH ×2 (04:57→17:24)
[2023-03-07 04:58] LABS: Albumin 2.3 g/dL (3.2-4.8); Aspartate Aminotransferase 38 U/L (13-40); Bilirubin, Total 3.1 mg/dL (0.2-1.0); Phosphorus 4.1 mg/dL (2.4-5.1); Total Protein 4.7 g/dL (5.7-8.2)
[2023-03-07] MEDS: ACCU-CHEK COMFORT CURVE STRIP VI SCH ×3 (05:34→18:03)
[2023-03-07] MEDS: LACTULOSE 20Gm/30ML SOLN PO SCH ×3 (05:34→18:03)
[2023-03-07] MEDS: InsuLIN REG 1unit/0.01ml Soln (100units/ml) SC SCH ×3 (05:39→18:07)
[2023-03-07] MEDS: fentaNYL Drip 2500mCg/250mlNS 250 ML IV SCH ×2 (05:39→22:45)
[2023-03-07] MEDS ORDERED: DexmedeTOMIDine 4 ML IV ONE (06:34)
[2023-03-07] MEDS: cefTRIAXone 1GM/50ML D5W 50 ML IV SCH (09:16)
[2023-03-07] MEDS: rifAXIMin 550 MG TAB PO SCH ×2 (09:46→22:19)
[2023-03-07] MEDS ORDERED: PANTOPRAZOLE 40 MG/10 ML VIAL INJ IV ONE (11:30)
[2023-03-07] MEDS ORDERED: SPIRONOLACTONE 25 MG TAB PO ONE (11:45)
[2023-03-07] MEDS ORDERED: FUROSEMIDE 40 MG/4 ML VIAL IV ONE (11:45)
[2023-03-07] MEDS ORDERED: METOCLOPRAMIDE HCL 5MG/ml INJ 2ml VIAL IV ONE (11:45)
[2023-03-07] MEDS: METOCLOPRAMIDE HCL 5MG/ml INJ 2ml VIAL IV SCH ×2 (14:17→22:19)
[2023-03-07] MEDS: MIDAZOLAM DRIP 50 mg/50mL 50 ML IV SCH (19:15)
[2023-03-07] MEDS ORDERED: TPN PER PHARMACY IV NR ×10 (20:00)
[2023-03-07] MEDS: PANTOPRAZOLE 40 MG/10 ML VIAL INJ IV SCH (22:19)
[2023-03-08] VITALS (108 sets, daily range): BP systolic 78–124; BP diastolic 38–74; PULSE 66–108; RESP 13–35; TEMP 97.2–99.7; O2SAT 89–100
[2023-03-08] MEDS: LACTULOSE 20Gm/30ML SOLN PO SCH ×4 (00:02→18:38)
[2023-03-08] MEDS: ACCU-CHEK COMFORT CURVE STRIP VI SCH ×4 (00:02→18:38)
[2023-03-08] MEDS: ALBUTEROL SULF 2.5 MG/0.5ML(0.5%) NEB SOLN NEB PRN (00:03)
[2023-03-08] MEDS: InsuLIN REG 1unit/0.01ml Soln (100units/ml) SC SCH ×4 (00:05→18:40)
[2023-03-08] MEDS: PHENYLEPHRINE IV 250 ML IV SCH ×3 (01:45→17:35)
[2023-03-08] MEDS: VASOPRESSIN 40 UNITS in D5W 5% 198 ML IV SCH ×7 (02:15→22:15)
[2023-03-08] MEDS: FREE WATER GT SCH ×6 (03:03→21:52)
[2023-03-08 04:40] LABS: Hemoglobin 8.7 g/dL (13.5-17.5); Mean Corpuscular Hemoglobin 30.2 pg (28.0-32.0)
[2023-03-08 04:46] LABS: Basophils # (auto) 0.1 10 ^3/uL (0-0.2); Eosinophils # (auto) 0.6 10 ^3/uL (0-0.8); Eosinophils % (auto) 4.9 % (0.0-7.0); Hematocrit 26.8 % (41.0-53.0); Lymphocytes # (auto) 1.3 10 ^3/uL (0.4-5.4); Lymphocytes % (auto) 10.1 % (10.0-50.0); Mean Corpuscular Hgb Conc. 32.6 g/dL (32.0-36.0); Mean Corpuscular Volume 92.6 fL (80.0-100.0); Monocytes # (auto) 1.6 10 ^3/uL (0-1.3); Monocytes % (auto) 12.5 % (0.0-12.0); Neutrophils # (auto) 9.2 10 ^3/uL (1.6-8.6); Neutrophils % (auto) 71.5 % (37.0-80.0); Nucleated Red Blood Cells % 0.3 %; Red Blood Cells 2.89 10^6/uL (4.5-5.90); White Blood Cell 12.8 10^3/uL (4.4-10.8)
[2023-03-08 04:54] LABS: INR 1.63 (0.9-1.15); Partial Thromboplastin Time 35.9 SEC (24.5-34.5); Prothrombin Time 16.6 sec (9.3-11.8)
[2023-03-08 05:04] LABS: Alanine Aminotransferase 32 U/L (7-40); Albumin 2.2 g/dL (3.2-4.8); Alkaline Phosphatase 151 U/L (46-116); Anion Gap 2 (5-15); Aspartate Aminotransferase 35 U/L (13-40); BUN/Creatinine Ratio 21.4 (10.0-20.0); Blood Urea Nitrogen 21 mg/dL (9-23); Calcium 7.7 mg/dL (8.7-10.4); Carbon Dioxide 27 mmol/L (20-30); Chloride 112 mmol/L (98-107); Glucose 114 mg/dL (74-106); Magnesium 1.9 mg/dL (1.6-2.6); Potassium 4.1 mmol/L (3.5-5.1); Sodium 141 mmol/L (136-145)
[2023-03-08 05:05] LABS: Bilirubin, Total 3.4 mg/dL (0.2-1.0); Phosphorus 3.6 mg/dL (2.4-5.1); Total Protein 4.5 g/dL (5.7-8.2)
[2023-03-08] MEDS: METOCLOPRAMIDE HCL 5MG/ml INJ 2ml VIAL IV SCH ×3 (05:41→21:52)
[2023-03-08] MEDS: NOREPINEPHRINE 8 MG/250ML KIT 250 ML IV SCH ×2 (06:01→18:39)
[2023-03-08 07:44] LABS: Base Excess -0.4 mmol/L (-2.0-2.0)
[2023-03-08] MEDS: PANTOPRAZOLE 40 MG/10 ML VIAL INJ IV SCH ×2 (09:38→21:51)
[2023-03-08] MEDS: rifAXIMin 550 MG TAB PO SCH ×2 (09:39→21:51)
[2023-03-08] MEDS ORDERED: FUROSEMIDE 40 MG/4 ML VIAL IV SCH (10:00)
[2023-03-08] MEDS ORDERED: SPIRONOLACTONE 25 MG TAB PO SCH (10:00)
[2023-03-08] MEDS: PROPOFOL 100 ML IV SCH ×2 (12:17→14:00)
[2023-03-08] MEDS: MIDAZOLAM DRIP 50 mg/50mL 50 ML IV SCH (17:35)
[2023-03-08] MEDS ORDERED: TPN PER PHARMACY IV NR ×10 (20:00)
[2023-03-08] MEDS: FUROSEMIDE 40 MG/4 ML VIAL IV SCH (21:52)
[2023-03-09] VITALS (107 sets, daily range): BP systolic 69–124; BP diastolic 30–63; PULSE 74–118; RESP 12–25; TEMP 98.6–100.4; O2SAT 81–100
[2023-03-09] MEDS: LACTULOSE 20Gm/30ML SOLN PO SCH ×4 (00:20→18:54)
[2023-03-09] MEDS: ACCU-CHEK COMFORT CURVE STRIP VI SCH ×4 (00:20→18:54)
[2023-03-09] MEDS: InsuLIN REG 1unit/0.01ml Soln (100units/ml) SC SCH ×4 (00:25→19:07)
[2023-03-09] MEDS: VASOPRESSIN 40 UNITS in D5W 5% 198 ML IV SCH ×7 (01:35→21:35)
[2023-03-09] MEDS: NOREPINEPHRINE 8 MG/250ML KIT 250 ML IV SCH ×4 (02:39→23:56)
[2023-03-09] MEDS: FREE WATER GT SCH ×6 (02:40→22:27)
[2023-03-09] MEDS: PHENYLEPHRINE IV 250 ML IV SCH ×3 (02:45→19:25)
[2023-03-09 05:04] LABS: Basophils # (auto) 0.2 10 ^3/uL (0-0.2); Basophils % (auto) 0.7 % (0.0-2.0); Eosinophils % (auto) 4.1 % (0.0-7.0); Hematocrit 28.2 % (41.0-53.0); Hemoglobin 9.2 g/dL (13.5-17.5); Lymphocytes # (auto) 1.8 10 ^3/uL (0.4-5.4); Lymphocytes % (auto) 7.6 % (10.0-50.0); Mean Corpuscular Hgb Conc. 32.7 g/dL (32.0-36.0); Mean Corpuscular Volume 94.9 fL (80.0-100.0); Monocytes # (auto) 1.3 10 ^3/uL (0-1.3); Monocytes % (auto) 5.3 % (0.0-12.0); Neutrophils # (auto) 19.4 10 ^3/uL (1.6-8.6); Neutrophils % (auto) 82.3 % (37.0-80.0); Nucleated Red Blood Cells % 0.1 %; Red Blood Cells 2.97 10^6/uL (4.5-5.90); Red Cell Distribution Width 22.1 % (11.8-14.3); White Blood Cell 23.5 10^3/uL (4.4-10.8)
[2023-03-09 05:18] LABS: Alanine Aminotransferase 28 U/L (7-40); Albumin 2.2 g/dL (3.2-4.8); Alkaline Phosphatase 164 U/L (46-116); Anion Gap 2 (5-15); Aspartate Aminotransferase 43 U/L (13-40); BUN/Creatinine Ratio 20.4 (10.0-20.0); Blood Urea Nitrogen 22 mg/dL (9-23); Calcium 7.8 mg/dL (8.7-10.4); Carbon Dioxide 29 mmol/L (20-30); Chloride 108 mmol/L (98-107); Magnesium 1.9 mg/dL (1.6-2.6); Potassium 4.1 mmol/L (3.5-5.1); Sodium 139 mmol/L (136-145)
[2023-03-09 05:19] LABS: Bilirubin, Total 3.2 mg/dL (0.2-1.0); INR 1.54 (0.9-1.15); Partial Thromboplastin Time 33.9 SEC (24.5-34.5); Phosphorus 3.8 mg/dL (2.4-5.1); Prothrombin Time 15.7 sec (9.3-11.8); Total Protein 4.8 g/dL (5.7-8.2)
[2023-03-09] MEDS: PROPOFOL 100 ML IV SCH ×3 (06:02→22:23)
[2023-03-09] MEDS: METOCLOPRAMIDE HCL 5MG/ml INJ 2ml VIAL IV SCH ×3 (06:03→22:25)
[2023-03-09] MEDS: fentaNYL Drip 2500mCg/250mlNS 250 ML IV SCH ×2 (06:04→22:25)
[2023-03-09 06:25] LABS: Glucose 141 mg/dL (74-106)
[2023-03-09] MEDS ORDERED: VANCOMYCIN PER PHARMACY 0 MG IV SCH (06:45)
[2023-03-09] MEDS ORDERED: VANCOMYCIN 1GM/250ML 250 ML IV ONE (07:15)
[2023-03-09 07:43] LABS: Base Excess 0.3 mmol/L (-2.0-2.0)
[2023-03-09 08:08] LABS: Urine Bacteria FEW /hpf (None Seen); Urine Blood Negative /uL (Negative); Urine Clarity Clear (Clear); Urine Color Yellow (Yellow); Urine Hyaline Cast FEW /lpf (0 - 2); Urine Mucus FEW (None Seen); Urine Protein, UAD Negative (Negative); Urine Specific Gravity 1.015 (1.001-1.035); Urine Urobilinogen Normal (Negative); Urine WBC 6 /hpf (0 - 3); Urine pH 5.5 (5.0-8.0)
[2023-03-09] MEDS: FUROSEMIDE 40 MG/4 ML VIAL IV SCH ×2 (09:33→22:25)
[2023-03-09] MEDS: PANTOPRAZOLE 40 MG/10 ML VIAL INJ IV SCH ×2 (09:33→22:25)
[2023-03-09] MEDS: SPIRONOLACTONE 25 MG TAB PO SCH (09:34)
[2023-03-09] MEDS: rifAXIMin 550 MG TAB PO SCH ×2 (09:34→22:26)
[2023-03-09] MEDS: CEFEPIME 2GM/50ML NS 50 ML IV SCH ×2 (13:53→22:26)
[2023-03-09] MEDS ORDERED: LIDOCAINE 1% (LOCAL ANESTH.) PF 5ml SDV ID ONE (15:30)
[2023-03-09] MEDS: MIDAZOLAM DRIP 50 mg/50mL 50 ML IV SCH (18:54)
[2023-03-09] MEDS ORDERED: TPN PER PHARMACY IV NR ×9 (20:00)
[2023-03-09] MEDS: VANCOMYCIN 1GM/250ML 250 ML IV SCH (20:21)
[2023-03-09] MEDS: SODIUM CHLOR 0.9% PF (SALINE LOCK) 10ML VIAL/SYR IV SCH (22:30)
[2023-03-10] VITALS (105 sets, daily range): BP systolic 71–141; BP diastolic 29–74; PULSE 89–118; RESP 11–25; TEMP 97.5–99.9; O2SAT 83–100
[2023-03-10] MEDS: LACTULOSE 20Gm/30ML SOLN PO SCH ×5 (00:12→23:16)
[2023-03-10] MEDS: InsuLIN REG 1unit/0.01ml Soln (100units/ml) SC SCH ×5 (00:12→23:20)
[2023-03-10] MEDS: ACCU-CHEK COMFORT CURVE STRIP VI SCH ×5 (00:15→23:16)
[2023-03-10] MEDS: VASOPRESSIN 40 UNITS in D5W 5% 198 ML IV SCH ×7 (00:55→20:03)
[2023-03-10] MEDS: FREE WATER GT SCH ×3 (02:00→10:23)
[2023-03-10] MEDS: PHENYLEPHRINE IV 250 ML IV SCH ×3 (03:45→20:25)
[2023-03-10] MEDS ORDERED: NOREPINEPHRINE BITARTRATE 1 ML IV ONE (04:06)
[2023-03-10] MEDS: NOREPINEPHRINE 8 MG/250ML KIT 250 ML IV SCH ×4 (04:11→17:40)
[2023-03-10 05:13] LABS: Chloride 102 mmol/L (98-107); Potassium 4.5 mmol/L (3.5-5.1)
[2023-03-10 05:18] LABS: Anion Gap 2 (5-15); Calcium 7.7 mg/dL (8.7-10.4); Carbon Dioxide 29 mmol/L (20-30)
[2023-03-10 05:23] LABS: Alkaline Phosphatase 153 U/L (46-116); BUN/Creatinine Ratio 21.4 (10.0-20.0); Blood Urea Nitrogen 25 mg/dL (9-23); Magnesium 1.9 mg/dL (1.6-2.6)
[2023-03-10 05:25] LABS: Alanine Aminotransferase 23 U/L (7-40); Albumin 2.2 g/dL (3.2-4.8); Basophils # (auto) 0.1 10 ^3/uL (0-0.2); Basophils % (auto) 0.4 % (0.0-2.0); Eosinophils # (auto) 0.7 10 ^3/uL (0-0.8); Eosinophils % (auto) 2.5 % (0.0-7.0); Hematocrit 27.4 % (41.0-53.0); Lymphocytes # (auto) 1.6 10 ^3/uL (0.4-5.4); Mean Corpuscular Hemoglobin 31.3 pg (28.0-32.0); Mean Corpuscular Hgb Conc. 32.8 g/dL (32.0-36.0); Mean Corpuscular Volume 95.5 fL (80.0-100.0); Monocytes # (auto) 1.2 10 ^3/uL (0-1.3); Monocytes % (auto) 4.6 % (0.0-12.0); Neutrophils # (auto) 23.4 10 ^3/uL (1.6-8.6); Neutrophils % (auto) 86.5 % (37.0-80.0); Nucleated Red Blood Cells % 0.1 %; Red Blood Cells 2.86 10^6/uL (4.5-5.90); Total Protein 4.7 g/dL (5.7-8.2); White Blood Cell 27.1 10^3/uL (4.4-10.8)
[2023-03-10 05:35] LABS: INR 1.67 (0.9-1.15); Partial Thromboplastin Time 36.8 SEC (24.5-34.5)
[2023-03-10 05:41] LABS: Sodium 133 mmol/L (136-145)
[2023-03-10] MEDS: PROPOFOL 100 ML IV SCH ×3 (05:45→16:52)
[2023-03-10 05:51] LABS: Aspartate Aminotransferase 57 U/L (13-40); Phosphorus 4.9 mg/dL (2.4-5.1)
[2023-03-10] MEDS: METOCLOPRAMIDE HCL 5MG/ml INJ 2ml VIAL IV SCH ×3 (05:58→22:07)
[2023-03-10] MEDS: CEFEPIME 2GM/50ML NS 50 ML IV SCH (06:04)
[2023-03-10 07:34] LABS: Glucose 190 mg/dL (74-106)
[2023-03-10] MEDS: VANCOMYCIN 1GM/250ML 250 ML IV SCH ×2 (08:48→20:22)
[2023-03-10 10:08] LABS: Anisocytosis Slight; Platelet Estimate Adequate
[2023-03-10] MEDS: PANTOPRAZOLE 40 MG/10 ML VIAL INJ IV SCH ×2 (10:22→22:08)
[2023-03-10] MEDS: SODIUM CHLOR 0.9% PF (SALINE LOCK) 10ML VIAL/SYR IV SCH ×2 (10:23→22:08)
[2023-03-10] MEDS: rifAXIMin 550 MG TAB PO SCH ×2 (10:23→22:08)
[2023-03-10] MEDS: SPIRONOLACTONE 25 MG TAB PO SCH (10:23)
[2023-03-10] MEDS: FUROSEMIDE 40 MG/4 ML VIAL IV SCH ×2 (10:23→22:08)
[2023-03-10] MEDS: MIDAZOLAM DRIP 50 mg/50mL 50 ML IV SCH (12:44)
[2023-03-10] MEDS: CeftoloZANE-TAZOB 1g/0.5g in D5W 5% 100 ML IV SCH ×2 (13:39→22:08)
[2023-03-10] MEDS: fentaNYL Drip 2500mCg/250mlNS 250 ML IV SCH ×2 (13:41→23:19)
[2023-03-10] MEDS ORDERED: TPN PER PHARMACY IV NR ×9 (20:00)
[2023-03-10] MEDS: NOREPINEPHRINE BITARTRATE 32 MG in SODIUM CHL 0.9% 218 ML IV SCH (22:57)
[2023-03-11] VITALS (111 sets, daily range): BP systolic 80–194; BP diastolic 37–97; PULSE 92–109; RESP 13–30; TEMP 98.1–99.7; O2SAT 92–100
[2023-03-11] MEDS: VASOPRESSIN 40 UNITS in D5W 5% 198 ML IV SCH ×8 (00:07→23:35)
[2023-03-11] MEDS: fentaNYL Drip 2500mCg/250mlNS 250 ML IV SCH ×3 (02:15→17:58)
[2023-03-11] MEDS: PROPOFOL 100 ML IV SCH ×3 (03:19→14:47)
[2023-03-11 04:22] LABS: Basophils # (auto) 0.1 10 ^3/uL (0-0.2); Basophils % (auto) 0.6 % (0.0-2.0); Eosinophils # (auto) 0.5 10 ^3/uL (0-0.8); Eosinophils % (auto) 2.1 % (0.0-7.0); Hematocrit 28.4 % (41.0-53.0); Hemoglobin 9.1 g/dL (13.5-17.5); Lymphocytes # (auto) 1.2 10 ^3/uL (0.4-5.4); Lymphocytes % (auto) 4.9 % (10.0-50.0); Mean Corpuscular Hemoglobin 31.4 pg (28.0-32.0); Mean Corpuscular Hgb Conc. 32.1 g/dL (32.0-36.0); Mean Corpuscular Volume 97.9 fL (80.0-100.0); Monocytes # (auto) 1.2 10 ^3/uL (0-1.3); Monocytes % (auto) 4.9 % (0.0-12.0); Neutrophils # (auto) 21.9 10 ^3/uL (1.6-8.6); Neutrophils % (auto) 87.5 % (37.0-80.0); Nucleated Red Blood Cells % 0.1 %
[2023-03-11 04:43] LABS: INR 1.58 (0.9-1.15); Prothrombin Time 16.1 sec (9.3-11.8)
[2023-03-11] MEDS: PHENYLEPHRINE IV 250 ML IV SCH ×3 (04:45→21:18)
[2023-03-11 05:19] LABS: Alanine Aminotransferase 27 U/L (7-40); Albumin 2.2 g/dL (3.2-4.8); Alkaline Phosphatase 157 U/L (46-116); Anion Gap 3 (5-15); Aspartate Aminotransferase 62 U/L (13-40); BUN/Creatinine Ratio 24.8 (10.0-20.0); Blood Urea Nitrogen 26 mg/dL (9-23); Calcium 7.6 mg/dL (8.7-10.4); Carbon Dioxide 31 mmol/L (20-30); Chloride 95 mmol/L (98-107); Glucose 218 mg/dL (74-106); Magnesium 1.9 mg/dL (1.6-2.6); Potassium 3.9 mmol/L (3.5-5.1); Sodium 129 mmol/L (136-145)
[2023-03-11 05:20] LABS: Phosphorus 4.9 mg/dL (2.4-5.1); Total Protein 4.8 g/dL (5.7-8.2)
[2023-03-11] MEDS: METOCLOPRAMIDE HCL 5MG/ml INJ 2ml VIAL IV SCH ×3 (06:11→21:20)
[2023-03-11] MEDS: CeftoloZANE-TAZOB 1g/0.5g in D5W 5% 100 ML IV SCH ×3 (06:12→21:12)
[2023-03-11] MEDS: LACTULOSE 20Gm/30ML SOLN PO SCH ×3 (06:12→18:02)
[2023-03-11] MEDS: InsuLIN REG 1unit/0.01ml Soln (100units/ml) SC SCH ×4 (06:12→23:59)
[2023-03-11] MEDS: ACCU-CHEK COMFORT CURVE STRIP VI SCH ×4 (06:12→23:59)
[2023-03-11 06:18] LABS: Triglycerides 65 mg/dL (< 150)
[2023-03-11] MEDS: VANCOMYCIN 1GM/250ML 250 ML IV SCH (08:06)
[2023-03-11] MEDS: PANTOPRAZOLE 40 MG/10 ML VIAL INJ IV SCH ×2 (10:32→21:20)
[2023-03-11] MEDS: SPIRONOLACTONE 25 MG TAB PO SCH (10:33)
[2023-03-11] MEDS: rifAXIMin 550 MG TAB PO SCH ×2 (10:33→21:25)
[2023-03-11] MEDS: FUROSEMIDE 40 MG/4 ML VIAL IV SCH ×2 (10:33→21:20)
[2023-03-11] MEDS: SODIUM CHLOR 0.9% PF (SALINE LOCK) 10ML VIAL/SYR IV SCH ×2 (10:33→21:18)
[2023-03-11 12:53] LABS: Base Excess 4.1 mmol/L (-2.0-2.0)
[2023-03-11 14:37] LABS: Base Excess 5.2 mmol/L (-2.0-2.0)
[2023-03-11] MEDS: LINEZOLID 600MG/300ML 300 ML IV SCH (15:18)
[2023-03-11 16:49] LABS: Base Excess 1.8 mmol/L (-2.0-2.0)
[2023-03-11] MEDS: MIDAZOLAM DRIP 50 mg/50mL 50 ML IV SCH (19:15)
[2023-03-11] MEDS ORDERED: TPN PER PHARMACY IV NR ×9 (20:00)
[2023-03-11 20:40] LABS: Base Excess 1.5 mmol/L (-2.0-2.0)
[2023-03-11] MEDS: NOREPINEPHRINE BITARTRATE 32 MG in SODIUM CHL 0.9% 218 ML IV SCH (21:10)
[2023-03-12] VITALS (109 sets, daily range): BP systolic 73–165; BP diastolic 40–76; PULSE 83–109; RESP 22–31; TEMP 95.9–99.1; O2SAT 95–100
[2023-03-12] MEDS: VASOPRESSIN 40 UNITS in D5W 5% 198 ML IV SCH ×6 (01:01→21:02)
[2023-03-12] MEDS: LINEZOLID 600MG/300ML 300 ML IV SCH ×2 (02:48→14:36)
[2023-03-12] MEDS: PROPOFOL 100 ML IV SCH ×5 (03:00→22:34)
[2023-03-12] MEDS: fentaNYL Drip 2500mCg/250mlNS 250 ML IV SCH ×3 (03:01→20:54)
[2023-03-12 04:23] LABS: Basophils # (auto) 0.2 10 ^3/uL (0-0.2); Basophils % (auto) 0.8 % (0.0-2.0); Hematocrit 28.7 % (41.0-53.0); Hemoglobin 9.3 g/dL (13.5-17.5); Lymphocytes # (auto) 1.8 10 ^3/uL (0.4-5.4); Lymphocytes % (auto) 8.8 % (10.0-50.0); Mean Corpuscular Hemoglobin 30.8 pg (28.0-32.0); Mean Corpuscular Hgb Conc. 32.4 g/dL (32.0-36.0); Mean Corpuscular Volume 94.9 fL (80.0-100.0); Monocytes # (auto) 1.2 10 ^3/uL (0-1.3); Neutrophils # (auto) 16.6 10 ^3/uL (1.6-8.6); Neutrophils % (auto) 79.4 % (37.0-80.0); Nucleated Red Blood Cells % 0.1 %; Red Blood Cells 3.03 10^6/uL (4.5-5.90); White Blood Cell 20.9 10^3/uL (4.4-10.8)
[2023-03-12 04:41] LABS: Alanine Aminotransferase 29 U/L (7-40); Albumin 2.2 g/dL (3.2-4.8); Alkaline Phosphatase 166 U/L (46-116); Anion Gap 1 (5-15); Aspartate Aminotransferase 65 U/L (13-40); BUN/Creatinine Ratio 30.4 (10.0-20.0); Blood Urea Nitrogen 28 mg/dL (9-23); Calcium 7.8 mg/dL (8.7-10.4); Carbon Dioxide 34 mmol/L (20-30); Chloride 92 mmol/L (98-107); Glucose 244 mg/dL (74-106); Magnesium 1.9 mg/dL (1.6-2.6); Phosphorus 3.2 mg/dL (2.4-5.1); Sodium 127 mmol/L (136-145)
[2023-03-12 04:42] LABS: Bilirubin, Total 3.6 mg/dL (0.2-1.0); INR 1.57 (0.9-1.15); Partial Thromboplastin Time 34.5 SEC (24.5-34.5); Total Protein 4.9 g/dL (5.7-8.2)
[2023-03-12] MEDS: PHENYLEPHRINE IV 250 ML IV SCH ×3 (04:42→22:25)
[2023-03-12 04:50] LABS: Red Cell Distribution Width 24.6 % (11.8-14.3)
[2023-03-12] MEDS: METOCLOPRAMIDE HCL 5MG/ml INJ 2ml VIAL IV SCH ×3 (05:07→21:20)
[2023-03-12] MEDS: CeftoloZANE-TAZOB 1g/0.5g in D5W 5% 100 ML IV SCH ×2 (05:07→17:59)
[2023-03-12] MEDS: LACTULOSE 20Gm/30ML SOLN PO SCH ×5 (05:07→23:12)
[2023-03-12] MEDS: ACCU-CHEK COMFORT CURVE STRIP VI SCH ×4 (05:29→23:11)
[2023-03-12] MEDS: InsuLIN REG 1unit/0.01ml Soln (100units/ml) SC SCH ×4 (05:30→23:11)
[2023-03-12] MEDS: POTASSIUM CHL 20MEQ/100ML 100 ML IV SCH ×2 (06:10→08:35)
[2023-03-12 09:18] LABS: Base Excess 5.6 mmol/L (-2.0-2.0)
[2023-03-12] MEDS ORDERED: phytonadione 10 MG in SODIUM CHL 0.9% 50 ML IV ONE (10:45)
[2023-03-12] MEDS: PANTOPRAZOLE 40 MG/10 ML VIAL INJ IV SCH ×2 (10:58→21:20)
[2023-03-12] MEDS: SPIRONOLACTONE 25 MG TAB PO SCH (10:58)
[2023-03-12] MEDS: rifAXIMin 550 MG TAB PO SCH ×2 (10:58→21:20)
[2023-03-12] MEDS: SODIUM CHLOR 0.9% PF (SALINE LOCK) 10ML VIAL/SYR IV SCH ×2 (10:59→22:00)
[2023-03-12] MEDS: FUROSEMIDE INJECTION 100 MG in D5W 5% 100 ML IV SCH (13:10)
[2023-03-12] MEDS: MIDAZOLAM DRIP 50 mg/50mL 50 ML IV SCH (19:15)
[2023-03-12] MEDS: ALBUTEROL SULF 2.5 MG/0.5ML(0.5%) NEB SOLN NEB PRN (20:19)
[2023-03-12] MEDS: SODIUM CHLORIDE IV NR ×9 (20:38)
[2023-03-12] MEDS: [UNRECOGNIZED DRUG - OTHER] IV NR ×9 (20:38)
[2023-03-12] MEDS: CALCIUM GLUC IV NR ×9 (20:38)
[2023-03-12] MEDS: POTASSIUM CHLORIDE IV NR ×9 (20:38)
[2023-03-12] MEDS ORDERED: VASOPRESSIN 20 UNIT/ML ONE ×2 (21:28→21:36)
[2023-03-13] VITALS (107 sets, daily range): BP systolic 74–146; BP diastolic 36–72; PULSE 92–118; RESP 11–33; TEMP 97.5–100; O2SAT 89–100
[2023-03-13] MEDS: VASOPRESSIN 40 UNITS in D5W 5% 198 ML IV SCH ×4 (00:10→09:33)
[2023-03-13] MEDS: CeftoloZANE-TAZOB 1g/0.5g in D5W 5% 100 ML IV SCH ×3 (01:13→17:59)
[2023-03-13] MEDS: LINEZOLID 600MG/300ML 300 ML IV SCH ×2 (02:08→14:51)
[2023-03-13] MEDS: PROPOFOL 100 ML IV SCH ×4 (03:24→23:16)
[2023-03-13] MEDS ORDERED: FUROSEMIDE INJECTION 10 ML ONE (04:15)
[2023-03-13] MEDS: FUROSEMIDE INJECTION 100 MG in D5W 5% 100 ML IV SCH (04:19)
[2023-03-13 04:25] LABS: Alanine Aminotransferase 35 U/L (7-40); Alkaline Phosphatase 168 U/L (46-116); Anion Gap 2 (5-15); Aspartate Aminotransferase 108 U/L (13-40); BUN/Creatinine Ratio 37.2 (10.0-20.0); Bilirubin, Total 3.5 mg/dL (0.2-1.0); Blood Urea Nitrogen 32 mg/dL (9-23); Calcium 7.7 mg/dL (8.7-10.4); Carbon Dioxide 32 mmol/L (20-30); Chloride 92 mmol/L (98-107); Glucose 205 mg/dL (74-106); Phosphorus 3.4 mg/dL (2.4-5.1); Sodium 126 mmol/L (136-145)
[2023-03-13 04:26] LABS: Total Protein 4.8 g/dL (5.7-8.2)
[2023-03-13 04:31] LABS: Basophils # (auto) 0.2 10 ^3/uL (0-0.2); Eosinophils # (auto) 1.1 10 ^3/uL (0-0.8); Eosinophils % (auto) 5.9 % (0.0-7.0); Hematocrit 26.8 % (41.0-53.0); Hemoglobin 8.8 g/dL (13.5-17.5); INR 1.58 (0.9-1.15); Lymphocytes # (auto) 1.4 10 ^3/uL (0.4-5.4); Lymphocytes % (auto) 7.1 % (10.0-50.0); Mean Corpuscular Hgb Conc. 32.7 g/dL (32.0-36.0); Monocytes # (auto) 1.4 10 ^3/uL (0-1.3); Monocytes % (auto) 7.4 % (0.0-12.0); Neutrophils % (auto) 78.6 % (37.0-80.0); Nucleated Red Blood Cells % 0.1 %; Prothrombin Time 16.1 sec (9.3-11.8); Red Blood Cells 2.82 10^6/uL (4.5-5.90)
[2023-03-13 04:32] LABS: Red Cell Distribution Width 23.7 % (11.8-14.3)
[2023-03-13] MEDS: METOCLOPRAMIDE HCL 5MG/ml INJ 2ml VIAL IV SCH ×3 (05:07→21:53)
[2023-03-13] MEDS: LACTULOSE 20Gm/30ML SOLN PO SCH ×4 (05:07→21:53)
[2023-03-13] MEDS: fentaNYL Drip 2500mCg/250mlNS 250 ML IV SCH ×2 (05:09→23:19)
[2023-03-13] MEDS: NOREPINEPHRINE BITARTRATE 32 MG in SODIUM CHL 0.9% 218 ML IV SCH ×2 (05:21→19:30)
[2023-03-13 05:51] LABS: Potassium 2.8 mmol/L (3.5-5.1)
[2023-03-13] MEDS ORDERED: POTASSIUM CHL 20MEQ/100ML 100 ML IV ONE (06:00)
[2023-03-13] MEDS: ACCU-CHEK COMFORT CURVE STRIP VI SCH ×4 (06:02→23:29)
[2023-03-13] MEDS: InsuLIN REG 1unit/0.01ml Soln (100units/ml) SC SCH ×4 (06:02→23:29)
[2023-03-13] MEDS: PHENYLEPHRINE IV 250 ML IV SCH (06:45)
[2023-03-13 07:22] LABS: Base Excess 3.3 mmol/L (-2.0-2.0)
[2023-03-13] MEDS: PANTOPRAZOLE 40 MG/10 ML VIAL INJ IV SCH ×2 (09:32→21:53)
[2023-03-13] MEDS: SPIRONOLACTONE 25 MG TAB PO SCH (09:32)
[2023-03-13] MEDS: SODIUM CHLOR 0.9% PF (SALINE LOCK) 10ML VIAL/SYR IV SCH ×2 (09:32→21:54)
[2023-03-13] MEDS: rifAXIMin 550 MG TAB PO SCH ×2 (09:39→21:53)
[2023-03-13] MEDS: POTASSIUM CHL 20MEQ/100ML 100 ML IV SCH ×5 (09:45→15:11)
[2023-03-13] MEDS: VASOPRESSIN 20 UNITS in SODIUM CHL 0.9% 99 ML IV SCH (13:30)
[2023-03-13] MEDS: PHENYLEPHRINE INJ 80 MG in SODIUM CHL 0.9% 242 ML IV SCH (15:50)
[2023-03-13] MEDS: MIDAZOLAM DRIP 50 mg/50mL 50 ML IV SCH (19:15)
[2023-03-13] MEDS ORDERED: TPN PER PHARMACY IV NR ×10 (20:00)
[2023-03-13] MEDS: POTASSIUM CHLORIDE IV NR ×9 (20:04)
[2023-03-13] MEDS: SODIUM CHLORIDE IV NR ×9 (20:04)
[2023-03-13] MEDS: [UNRECOGNIZED DRUG - OTHER] IV NR ×9 (20:04)
[2023-03-13] MEDS: CALCIUM GLUC IV NR ×9 (20:04)
[2023-03-14] VITALS (108 sets, daily range): BP systolic 85–126; BP diastolic 40–57; PULSE 102–118; RESP 10–33; TEMP 97.9–100; O2SAT 89–100
[2023-03-14] MEDS: VASOPRESSIN 20 UNITS in SODIUM CHL 0.9% 99 ML IV SCH ×3 (00:37→17:46)
[2023-03-14] MEDS: CeftoloZANE-TAZOB 1g/0.5g in D5W 5% 100 ML IV SCH ×2 (01:13→11:19)
[2023-03-14] MEDS: FUROSEMIDE INJECTION 100 MG in D5W 5% 100 ML IV SCH ×2 (01:14→21:18)
[2023-03-14] MEDS: LINEZOLID 600MG/300ML 300 ML IV SCH ×2 (02:22→14:57)
[2023-03-14] MEDS: NOREPINEPHRINE BITARTRATE 32 MG in SODIUM CHL 0.9% 218 ML IV SCH (03:08)
[2023-03-14 04:31] LABS: Basophils # (auto) 0.2 10 ^3/uL (0-0.2); Hematocrit 25.4 % (41.0-53.0); Hemoglobin 8.3 g/dL (13.5-17.5); Mean Corpuscular Hgb Conc. 32.5 g/dL (32.0-36.0); Monocytes % (auto) 8.3 % (0.0-12.0); Nucleated Red Blood Cells % 0.1 %
[2023-03-14] MEDS: PROPOFOL 100 ML IV SCH ×3 (04:33→19:55)
[2023-03-14 04:36] LABS: Basophils % (auto) 0.9 % (0.0-2.0); Eosinophils # (auto) 1.3 10 ^3/uL (0-0.8); Eosinophils % (auto) 6.4 % (0.0-7.0); Lymphocytes # (auto) 1.8 10 ^3/uL (0.4-5.4); Lymphocytes % (auto) 8.9 % (10.0-50.0); Mean Corpuscular Volume 95.6 fL (80.0-100.0); Monocytes # (auto) 1.7 10 ^3/uL (0-1.3); Neutrophils % (auto) 75.5 % (37.0-80.0); Red Blood Cells 2.66 10^6/uL (4.5-5.90)
[2023-03-14 04:47] LABS: Alanine Aminotransferase 38 U/L (7-40); Albumin 1.9 g/dL (3.2-4.8); Alkaline Phosphatase 154 U/L (46-116); Anion Gap 4 (5-15); Aspartate Aminotransferase 113 U/L (13-40); BUN/Creatinine Ratio 41.7 (10.0-20.0); Calcium 7.8 mg/dL (8.7-10.4); Carbon Dioxide 30 mmol/L (20-30); Chloride 92 mmol/L (98-107); Glucose 152 mg/dL (74-106); Magnesium 2.4 mg/dL (1.6-2.6); Potassium 4.2 mmol/L (3.5-5.1); Sodium 126 mmol/L (136-145)
[2023-03-14 04:48] LABS: Bilirubin, Total 3.6 mg/dL (0.2-1.0); Phosphorus 4.3 mg/dL (2.4-5.1); Total Protein 4.5 g/dL (5.7-8.2)
[2023-03-14 04:52] LABS: Red Cell Distribution Width 23.6 % (11.8-14.3)
[2023-03-14 05:09] LABS: Blood Urea Nitrogen 43 mg/dL (9-23)
[2023-03-14] MEDS: ACCU-CHEK COMFORT CURVE STRIP VI SCH ×4 (05:24→23:26)
[2023-03-14] MEDS: LACTULOSE 20Gm/30ML SOLN PO SCH ×4 (05:24→21:19)
[2023-03-14] MEDS: METOCLOPRAMIDE HCL 5MG/ml INJ 2ml VIAL IV SCH ×3 (05:24→21:19)
[2023-03-14] MEDS: InsuLIN REG 1unit/0.01ml Soln (100units/ml) SC SCH ×4 (05:25→23:26)
[2023-03-14 09:03] LABS: Base Excess 3.7 mmol/L (-2.0-2.0)
[2023-03-14] MEDS: PANTOPRAZOLE 40 MG/10 ML VIAL INJ IV SCH ×2 (11:19→21:19)
[2023-03-14] MEDS: SODIUM CHLOR 0.9% PF (SALINE LOCK) 10ML VIAL/SYR IV SCH ×2 (11:20→21:19)
[2023-03-14] MEDS: fentaNYL Drip 2500mCg/250mlNS 250 ML IV SCH ×2 (12:27→19:59)
[2023-03-14] MEDS ORDERED: levoFLOXacin 750MG 150 ML IV ONE (13:15)
[2023-03-14] MEDS: PHENYLEPHRINE INJ 80 MG in SODIUM CHL 0.9% 242 ML IV SCH (13:30)
[2023-03-14] MEDS ORDERED: MEROPENEM 1GM IVPB 0 ML IV ONE (14:53)
[2023-03-14] MEDS: MEROPENEM 2 GM in SODIUM CHL 0.9% 250 ML IV SCH ×2 (17:06→23:23)
[2023-03-14] MEDS: MIDAZOLAM DRIP 50 mg/50mL 50 ML IV SCH (19:15)
[2023-03-14] MEDS ORDERED: TPN PER PHARMACY IV NR ×8 (20:00)
[2023-03-14] MEDS: rifAXIMin 550 MG TAB GT SCH (21:19)
[2023-03-15] VITALS (110 sets, daily range): BP systolic 73–118; BP diastolic 36–57; PULSE 102–111; RESP 9–32; TEMP 96.6–100; O2SAT 92–99
[2023-03-15] MEDS: PROPOFOL 100 ML IV SCH ×4 (01:05→20:12)
[2023-03-15] MEDS: LINEZOLID 600MG/300ML 300 ML IV SCH ×2 (02:30→14:50)
[2023-03-15 04:27] LABS: Basophils # (auto) 0.2 10 ^3/uL (0-0.2); Nucleated Red Blood Cells % 0.1 %
[2023-03-15 04:30] LABS: Basophils % (auto) 1.1 % (0.0-2.0); Eosinophils # (auto) 1.7 10 ^3/uL (0-0.8); Eosinophils % (auto) 8.8 % (0.0-7.0); Hematocrit 24.2 % (41.0-53.0); Hemoglobin 8.1 g/dL (13.5-17.5); Lymphocytes # (auto) 1.5 10 ^3/uL (0.4-5.4); Lymphocytes % (auto) 7.8 % (10.0-50.0); Mean Corpuscular Hemoglobin 31.8 pg (28.0-32.0); Mean Corpuscular Hgb Conc. 33.5 g/dL (32.0-36.0); Mean Corpuscular Volume 94.7 fL (80.0-100.0); Monocytes # (auto) 1.3 10 ^3/uL (0-1.3); Monocytes % (auto) 6.5 % (0.0-12.0); Neutrophils # (auto) 14.8 10 ^3/uL (1.6-8.6); Neutrophils % (auto) 75.8 % (37.0-80.0); Red Blood Cells 2.56 10^6/uL (4.5-5.90); White Blood Cell 19.5 10^3/uL (4.4-10.8)
[2023-03-15 04:33] LABS: Red Cell Distribution Width 23.2 % (11.8-14.3)
[2023-03-15 04:35] LABS: Alanine Aminotransferase 38 U/L (7-40); Albumin 1.9 g/dL (3.2-4.8); Alkaline Phosphatase 157 U/L (46-116); Anion Gap 4 (5-15); Aspartate Aminotransferase 116 U/L (13-40); BUN/Creatinine Ratio 52.5 (10.0-20.0); Calcium 7.8 mg/dL (8.7-10.4); Carbon Dioxide 29 mmol/L (20-30); Chloride 94 mmol/L (98-107); Glucose 154 mg/dL (74-106); Magnesium 2.5 mg/dL (1.6-2.6); Potassium 4.1 mmol/L (3.5-5.1); Sodium 127 mmol/L (136-145)
[2023-03-15 04:36] LABS: Phosphorus 4.2 mg/dL (2.4-5.1)
[2023-03-15 04:37] LABS: Bilirubin, Total 4.1 mg/dL (0.2-1.0); Total Protein 4.6 g/dL (5.7-8.2)
[2023-03-15 04:52] LABS: Blood Urea Nitrogen 53 mg/dL (9-23)
[2023-03-15] MEDS: LACTULOSE 20Gm/30ML SOLN PO SCH ×4 (05:34→22:05)
[2023-03-15] MEDS: METOCLOPRAMIDE HCL 5MG/ml INJ 2ml VIAL IV SCH ×3 (05:34→22:05)
[2023-03-15] MEDS: ACCU-CHEK COMFORT CURVE STRIP VI SCH ×4 (05:35→23:16)
[2023-03-15] MEDS: InsuLIN REG 1unit/0.01ml Soln (100units/ml) SC SCH ×4 (05:37→23:24)
[2023-03-15] MEDS: MEROPENEM 2 GM in SODIUM CHL 0.9% 250 ML IV SCH ×3 (05:38→23:15)
[2023-03-15] MEDS: VASOPRESSIN 20 UNITS in SODIUM CHL 0.9% 99 ML IV SCH ×2 (05:38→16:49)
[2023-03-15] MEDS: PHENYLEPHRINE INJ 80 MG in SODIUM CHL 0.9% 242 ML IV SCH (10:18)
[2023-03-15] MEDS: levoFLOXacin 750MG 150 ML IV SCH (10:18)
[2023-03-15] MEDS: PANTOPRAZOLE 40 MG/10 ML VIAL INJ IV SCH ×2 (10:31→22:05)
[2023-03-15] MEDS: rifAXIMin 550 MG TAB GT SCH ×2 (10:31→22:06)
[2023-03-15] MEDS: SODIUM CHLOR 0.9% PF (SALINE LOCK) 10ML VIAL/SYR IV SCH ×2 (10:31→22:05)
[2023-03-15] MEDS: SPIRONOLACTONE 25 MG TAB GT SCH (10:36)
[2023-03-15] MEDS: NOREPINEPHRINE BITARTRATE 32 MG in SODIUM CHL 0.9% 218 ML IV SCH (11:41)
[2023-03-15] MEDS: fentaNYL Drip 2500mCg/250mlNS 250 ML IV SCH ×2 (11:44→20:17)
[2023-03-15] MEDS ORDERED: ALBUTEROL MEDNEB 2.5 mg/3ml NEB NEB PRN (12:45)
[2023-03-15] MEDS: FUROSEMIDE INJECTION 100 MG in D5W 5% 100 ML IV SCH (18:37)
[2023-03-15] MEDS: MIDAZOLAM DRIP 50 mg/50mL 50 ML IV SCH (19:15)
[2023-03-15] MEDS ORDERED: TPN PER PHARMACY IV NR ×8 (20:00)
[2023-03-16] VITALS (80 sets, daily range): BP systolic 78–126; BP diastolic 33–55; PULSE 62–110; RESP 0–33; TEMP 98.4–99.9; O2SAT 30–97
[2023-03-16] MEDS: PROPOFOL 100 ML IV SCH ×4 (01:54→15:24)
[2023-03-16] MEDS: LINEZOLID 600MG/300ML 300 ML IV SCH ×2 (02:33→14:58)
[2023-03-16] MEDS: NOREPINEPHRINE BITARTRATE 32 MG in SODIUM CHL 0.9% 218 ML IV SCH (03:33)
[2023-03-16] MEDS: VASOPRESSIN 20 UNITS in SODIUM CHL 0.9% 99 ML IV SCH ×2 (04:23→13:42)
[2023-03-16 04:54] LABS: Basophils # (auto) 0.2 10 ^3/uL (0-0.2); Eosinophils # (auto) 1.5 10 ^3/uL (0-0.8); Hematocrit 25.6 % (41.0-53.0); Nucleated Red Blood Cells % 0.1 %
[2023-03-16 05:00] LABS: Basophils % (auto) 1.1 % (0.0-2.0); Eosinophils % (auto) 6.9 % (0.0-7.0); Hemoglobin 8.5 g/dL (13.5-17.5); Lymphocytes # (auto) 1.6 10 ^3/uL (0.4-5.4); Lymphocytes % (auto) 7.4 % (10.0-50.0); Mean Corpuscular Hgb Conc. 33.2 g/dL (32.0-36.0); Mean Corpuscular Volume 96.2 fL (80.0-100.0); Monocytes # (auto) 1.4 10 ^3/uL (0-1.3); Monocytes % (auto) 6.3 % (0.0-12.0); Neutrophils # (auto) 16.9 10 ^3/uL (1.6-8.6); Neutrophils % (auto) 78.3 % (37.0-80.0); Red Blood Cells 2.66 10^6/uL (4.5-5.90); White Blood Cell 21.6 10^3/uL (4.4-10.8)
[2023-03-16 05:05] LABS: Alanine Aminotransferase 39 U/L (7-40); Albumin 1.9 g/dL (3.2-4.8); Alkaline Phosphatase 179 U/L (46-116); Anion Gap 7 (5-15); Aspartate Aminotransferase 117 U/L (13-40); BUN/Creatinine Ratio 45.4 (10.0-20.0); Bilirubin, Total 4.5 mg/dL (0.2-1.0); Blood Urea Nitrogen 59 mg/dL (9-23); Calcium 8.2 mg/dL (8.7-10.4); Carbon Dioxide 24 mmol/L (20-30); Chloride 97 mmol/L (98-107); Glucose 124 mg/dL (74-106); Magnesium 2.4 mg/dL (1.6-2.6); Phosphorus 5.3 mg/dL (2.4-5.1); Potassium 4.6 mmol/L (3.5-5.1); Sodium 128 mmol/L (136-145); Total Protein 4.7 g/dL (5.7-8.2)
[2023-03-16 05:13] LABS: Red Cell Distribution Width 23.4 % (11.8-14.3)
[2023-03-16] MEDS: ACCU-CHEK COMFORT CURVE STRIP VI SCH ×3 (05:53→18:00)
[2023-03-16] MEDS: METOCLOPRAMIDE HCL 5MG/ml INJ 2ml VIAL IV SCH ×2 (05:53→14:59)
[2023-03-16] MEDS: LACTULOSE 20Gm/30ML SOLN PO SCH ×2 (05:53→11:55)
[2023-03-16] MEDS: InsuLIN REG 1unit/0.01ml Soln (100units/ml) SC SCH ×3 (05:56→18:00)
[2023-03-16] MEDS: MEROPENEM 2 GM in SODIUM CHL 0.9% 250 ML IV SCH (07:36)
[2023-03-16] MEDS: fentaNYL Drip 2500mCg/250mlNS 250 ML IV SCH (07:38)
[2023-03-16 07:57] LABS: Base Excess -4.2 mmol/L (-2.0-2.0)
[2023-03-16] MEDS: SPIRONOLACTONE 25 MG TAB GT SCH (09:45)
[2023-03-16] MEDS: levoFLOXacin 750MG 150 ML IV SCH (09:45)
[2023-03-16] MEDS: rifAXIMin 550 MG TAB GT SCH (09:45)
[2023-03-16] MEDS: PANTOPRAZOLE 40 MG/10 ML VIAL INJ IV SCH (09:45)
[2023-03-16] MEDS: SODIUM CHLOR 0.9% PF (SALINE LOCK) 10ML VIAL/SYR IV SCH (09:46)
[2023-03-16] MEDS: PHENYLEPHRINE INJ 80 MG in SODIUM CHL 0.9% 242 ML IV SCH (15:00)
[2023-03-16] MEDS: MIDAZOLAM DRIP 50 mg/50mL 50 ML IV SCH (15:00)
[2023-03-16] MEDS ORDERED: LORazepam 2MG/ML-1ML VIAL IV PRN (16:45)
[2023-03-16] MEDS ORDERED: MORPHINE SULFATE INJ 2 MG/ml SYRG IV PRN (16:45)
[2023-03-16] MEDS ORDERED: TPN PER PHARMACY IV NR ×7 (20:00)
[2023-03-16] MEDS ORDERED: CEFEPIME 2GM/50ML NS 50 ML IV SCH (22:00)
== END 2023-03-16 18:01 | DRG 720 ==
LOC: ER 13:40 → TELE 16:15 → ICU WEST 22:27
PROVIDERS: ADMIT Nurse Practitioner Family; ATTEND Internal Medicine Pulmonary Disease
PROC: 30233N1 Transfusion of Nonautologous Red Blood Cells into Peripheral Vein, Percutaneous Approach (ICD-10-PCS; principal; 2023-03-01)
PROC: 5A1955Z Respiratory Ventilation, Greater than 96 Consecutive Hours (ICD-10-PCS; 2023-03-01)
PROC: 0BH17EZ Insertion of Endotracheal Airway into Trachea, Via Natural or Artificial Opening (ICD-10-PCS; 2023-03-01)
PROC: 30233K1 Transfusion of Nonautologous Frozen Plasma into Peripheral Vein, Percutaneous Approach (ICD-10-PCS; 2023-03-02)
PROC: 05H933Z Insertion of Infusion Device into Right Brachial Vein, Percutaneous Approach (ICD-10-PCS; 2023-03-02)
PROC: B54MZZA Ultrasonography of Right Upper Extremity Veins, Guidance (ICD-10-PCS; 2023-03-02)
PROC: 0DB68ZX Excision of Stomach, Via Natural or Artificial Opening Endoscopic, Diagnostic (ICD-10-PCS; 2023-03-02)
PROC: 02H633Z Insertion of Infusion Device into Right Atrium, Percutaneous Approach (ICD-10-PCS; 2023-03-09)
PROC: B548ZZA Ultrasonography of Superior Vena Cava, Guidance (ICD-10-PCS; 2023-03-09)
DX: A41.52 Sepsis due to Pseudomonas (principal); J96.01 Acute respiratory failure with hypoxia; I81 Portal vein thrombosis; G93.41 Metabolic encephalopathy; E43 Unspecified severe protein-calorie malnutrition; R57.8 Other shock; R65.21 Severe sepsis with septic shock; K29.71 Gastritis, unspecified, with bleeding; J15.1 Pneumonia due to Pseudomonas; I50.43 Acute on chronic combined systolic (congestive) and diastolic (congestive) heart failure; K83.1 Obstruction of bile duct; K29.81 Duodenitis with bleeding; D68.4 Acquired coagulation factor deficiency; I21.A1 Myocardial infarction type 2; K76.82 Hepatic encephalopathy; K70.31 Alcoholic cirrhosis of liver with ascites; R74.01 Elevation of levels of liver transaminase levels; Z66 Do not resuscitate; Z16.21 Resistance to vancomycin; B19.20 Unspecified viral hepatitis C without hepatic coma; S51.811A Laceration without foreign body of right forearm, initial encounter; X58.XXXA Exposure to other specified factors, initial encounter; D64.9 Anemia, unspecified; E87.5 Hyperkalemia; K44.9 Diaphragmatic hernia without obstruction or gangrene; K76.6 Portal hypertension; D69.6 Thrombocytopenia, unspecified; E87.0 Hyperosmolality and hypernatremia; N39.0 Urinary tract infection, site not specified; B95.2 Enterococcus as the cause of diseases classified elsewhere; Z68.21 Body mass index [BMI] 21.0-21.9, adult; Z51.5 Encounter for palliative care; Y93.89 Activity, other specified; Y92.89 Other specified places as the place of occurrence of the external cause; Y99.8 Other external cause status
CPT/HCPCS: 36415; 36569; 36600; 43239; 71045; 74018; 76705; 80053; 80202; 81001; 82105; 82140; 82805; 82962; 83036; 83605; 83690; 83735; 83880; 84100; 84443; 84478; 84484; 85007; 85014; 85018; 85025; 85027; 85384; 85610; 85730; 86704; 86706; 86708; 86803; 86850; 86900; 86901; 86920; 87040; 87070; 87077; 87081; 87086; 87088; 87186; 87205; 87340; 93005; 93306; 94002; 94003; 94640; 96365; 96367; 96375; 96379; 99291; C9113; G0378; J0330; J0692; J0696; J1815; J1956; J2185; J2250; J2543; J2704; J3430; J3480; J7060; J7131; P9047